=== PATIENT | female | born 1955 | race Caucasian/White ===

== ENCOUNTER → 2017-07-04 | Outpatient (CLI) | payer MEDICARE, MEDICAID ==
--- NOTE | 2017-07-04 17:00 | RADIOLOGY REPORT (SQ) ---
EXAM DESCRIPTION: MRI CERVICAL SPINE WITHOUT COMPLETED DATE/TIME: 07/04/2017 4:06 pm REASON FOR STUDY: M54.12 RADICULOPATHY, CERVICAL REGION M54.12 RADICULOPATHY, CERVICAL REGION COMPARISON: None. TECHNIQUE: Sagittal and Axial imaging includes T1, T2, STIR and gradient echo sequences. LIMITATIONS: None. FINDINGS: ALIGNMENT: Normal. VERTEBRAE: The odontoid is separate from the body of C2 and is well corticated. Otherwise intact. BONE MARROW: Normal. No marrow replacement or reactive changes. Incidental lesion in the body of C6 with increased signal on T1 and T2 weighted images, possibly a vertebral lipoma versus atypical heman gioma. DISCS: Normal. No significant abnormal signal or loss of height. HARDWARE: None in the spine. CORD AND BASE OF BRAIN: Normal in size and signal intensity. SOFT TISSUES: No soft tissue masses. C1-C2: No significant spinal stenosis. C2-C3: No significant spinal stenosis or exit foraminal stenosis. C3-C4: No significant spinal stenosis or exit foraminal stenosis. C4-C5: No significant spinal stenosis or exit foraminal stenosis. C5-C6: No significant spinal stenosis or exit foraminal stenosis. C6-C7: No significant spinal stenosis or exit foraminal stenosis. C7-T1: No significant spinal stenosis or exit foraminal stenosis. UPPER THORACIC: Incompletely imaged. No significant spinal stenosis or exit foraminal stenosis. OTHER: No other significant finding. IMPRESSION: 1. THE ODONTOID IS SEPARATE FROM THE BODY OF C2 AND IS WELL CORTICATED. 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 THIS IS A SURGERY TECH JAMEEL FINDING AND WAS ALSO PRESENT ON A PRIOR MRI OF THE BRAIN (04/06/2010). THERE IS NO COMPROMISE OF THE CERVICAL CANAL OR CORD IN NEUTRAL POSITIONING. MAY CONSIDER X-RAYS OF THE CERVICAL SPINE WITH FL EXION AND EXTENSION TO ASSESS FOR ANY EVIDENCE OF INSTABILITY. 2. NO OTHER SIGNIFICANT FINDING. NO SIGNIFICANT DISC DISEASE. NO STENOSIS OR IMPINGEMENT. 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 TECHNICAL DOCUMENTATION: JOB ID: [id number] [employer]- All Rights Reserved Reading location - IP/workstation name: [email or web address]
== END ==
LOC: RAD 16:40
PROVIDERS: ATTEND Internal Medicine
DX: M54.12 Radiculopathy, cervical region (principal)
CPT/HCPCS: 72141

== ENCOUNTER → 2017-08-13 | Outpatient (CLI) | payer MEDICARE, MEDICAID ==
--- NOTE | 2017-08-13 16:05 | RADIOLOGY REPORT (SQ) ---
EXAM DESCRIPTION: MRI RT UPPER JOINT WITHOUT COMPLETED DATE/TIME: 08/13/2017 3:44 pm REASON FOR STUDY: PAIN IN R SHOULDER M25.511 PAIN IN RIGHT SHOULDER COMPARISON: Radiographs from 2013. TECHNIQUE: Right shoulder images acquired and stored on PACS. Multiplanar imaging to include fat sen sitive sequences such as T1, water sensitive sequences such as FST2/STIR, cartilage sensitive sequenc es such as FSPD/gradient-echo sequences. LIMITATIONS: Up to moderate motion on many of the sequences despite attempted repeat scanning. No r ecent comparison radiographs are available. FINDINGS: BONE MARROW AND CORTEX: Patchy marrow edema is noted throughout the lateral humeral head. Suspect this is predominantly related to contusion. A significant displaced fracture is not suggest ed. See cuff related findings described below. JOINT OR BURSAL EFFUSION: Small joint effusion. This communicates with the subacromial subdeltoid bu rsa diffusely. GLENO-HUMERAL ARTICULATION: Superior migration humeral due to full-thickness cuff tear. Essentially complete loss of the subacromial space. ACROMION AND AC JOINT: No separation. Relatively mild degenerative overgrowth. ROTATOR CUFF AND INTERVAL: Full-thickness supraspinatus tear. Retraction is probably at least to the level of the glenohumeral joint. Prominent spurring and bone regularity underlying cuff insertion, likely chronic changes superimposed on the above-noted contusion. The infraspinatus portion of the c uff looks intact. Doubt significant subscapularis tear. Probable loss of muscle bulk/ atrophy in th e supraspinatus. LABRUM AND BICEPS LABRAL COMPLEX: Poor assessment of the superior labrum due to motion. Long head biceps tendon looks normally located within the biceps groove but otherwise is not well assessed. REMAINDER OF LABRUM AND IGHL : No gross displaced tear. PERIARTICULAR AND ADJACENT SOFT TISSUES: No masses or abnormal nodes. OTHER: No other significant finding. IMPRESSION: 1. Full-thickness supraspinatus cuff tear with retraction and atrophy. 2. Suspect combi nation of chronic bone changes related to cuff disease superimposed on lateral humeral head contusion edema. Or extensive or displaced fracture is not suggested. Limiting artifact, however. TECHNICAL DOCUMENTATION: JOB ID: [id number] [employer]- All Rights Reserved Reading location - IP/workstation name: [email or web address] [email or web address]
== END ==
LOC: RAD 13:26
PROVIDERS: ATTEND Internal Medicine
DX: M25.511 Pain in right shoulder (principal)

== ENCOUNTER → 2017-10-31 | Outpatient (CLI) | payer MEDICARE, MEDICAID ==
--- NOTE | 2017-10-31 17:43 | RADIOLOGY REPORT (SQ) ---
EXAM DESCRIPTION: CHEST PA/LATERAL COMPLETED DATE/TIME: 10/31/2017 5:34 pm REASON FOR STUDY: PRE-OP COMPARISON: None. EXAM PARAMETERS: NUMBER OF VIEWS: two views TECHNIQUE: Digital Frontal and Lateral radiographic views of the chest acquired. RADIATION DOSE: NA LIMITATIONS: none FINDINGS: LUNGS AND PLEURA: No opacities, masses or pneumothorax. No pleural effusion. MEDIASTINUM AND HILAR STRUCTURES: No masses or contour abnormalities. HEART AND VASCULAR STRUCTURES: Heart normal size. No evidence for failure. BONES: No acute findings. HARDWARE: None in the chest. OTHER: No other significant finding. IMPRESSION: NO SIGNIFICANT RADIOGRAPHIC FINDING IN THE CHEST. TECHNICAL DOCUMENTATION: JOB ID: [id number] [employer]- All Rights Reserved Reading location - IP/workstation name: [email or web address]
[2017-10-31 18:09] LABS: ABSOLUTE BASOPHILS # (AUTO) 0.1 10^3/uL (0.0-0.2); ABSOLUTE EOSINOPHILS # (AUTO) 0.1 10^3/uL (0.0-0.6); ABSOLUTE LYMPHOCYTES (AUTO) 2.6 10^3/uL (0.5-4.7); ABSOLUTE MONOCYTES (AUTO) 0.8 10^3/uL (0.1-1.4); ABSOLUTE NEUT (AUTO) 6.4 10^3/uL (1.7-8.2); BASOPHILS % (AUTO) 0.7 % (0-2); HEMATOCRIT 37.7 % (36.0-47.0); HEMOGLOBIN 12.7 g/dL (12.0-15.5); LYMPHOCYTES % (AUTO) 26.1 % (13-45); MEAN CORPUSCULAR HEMOGLOBIN 29.3 pg (27.0-33.4); MEAN CORPUSCULAR HGB CONC 33.7 g/dL (32.0-36.0); MEAN CORPUSCULAR VOLUME 87 fl (80-97); MONOCYTES % (AUTO) 8.1 % (3-13); PLATELET COUNT 357 10^3/uL (150-450); RED BLOOD COUNT 4.34 10^6/uL (3.72-5.28); RED CELL DISTRIBUTION WIDTH 14.1 % (11.5-14.0); SEGMENTED NEUTROPHILS % (AUTO) 64.1 % (42-78); TOTAL CELLS COUNTED % (AUTO) 100 %
[2017-10-31 18:10] LABS: APPEARANCE,URINE CLEAR; BILIRUBIN,URINE NEGATIVE (NEGATIVE); COLOR,URINE STRAW; GLUCOSE, URINE NEGATIVE (NEGATIVE); KETONES,URINE NEGATIVE (NEGATIVE); LEUKOCYTE ESTERASE,URINE NEGATIVE (NEGATIVE); NITRITE,URINE NEGATIVE (NEGATIVE); PROTEIN,URINE NEGATIVE (NEGATIVE); URINE SPECIFIC GRAVITY 1.004; UROBILINOGEN,URINE NEGATIVE mg/dL (<2.0)
[2017-10-31 18:29] LABS: ANION GAP 12 (5-19); BLOOD UREA NITROGEN 13 mg/dL (7-20); CALCIUM 9.5 mg/dL (8.4-10.2); CARBON DIOXIDE 26 mmol/L (22-30); CHLORIDE 104 mmol/L (98-107); GLUCOSE 100 mg/dL (75-110); POTASSIUM 4.4 mmol/L (3.6-5.0); SODIUM 142.4 mmol/L (137-145)
--- NOTE | 2017-11-01 07:52 | EKG REPORT ---
SEVERITY:- NORMAL ECG - SINUS RHYTHM : Confirmed by: Josefina Muse MD 01-Nov-2017 07:51:17
== END ==
LOC: OD 16:36
PROVIDERS: ATTEND Orthopaedic Surgery
DX: Z01.810 Encounter for preprocedural cardiovascular examination (principal); Z01.812 Encounter for preprocedural laboratory examination; Z01.818 Encounter for other preprocedural examination; Z01.89 Encounter for other specified special examinations
CPT/HCPCS: 36415; 71046; 80048; 81001; 85025; 93005; 93010

== ENCOUNTER 2017-11-02 11:02 | Day surgery (SDC) | payer MEDICARE, MEDICAID ==
[2017-11-02] MEDS ORDERED: BUPIVACAINE HCL 0.5 % INJ/PF 30 ML SDV ONE (11:44)
[2017-11-02] MEDS ORDERED: EPINEPHRINE INJ/PF 1 MG/1 ML AMPULE ONE ×2 (11:44→14:50)
[2017-11-02] MEDS ORDERED: CEFAZOLIN 2 GM/D5W RTU 2 GM/50 ML RTUPB IV PRN (12:05)
[2017-11-02] MEDS ORDERED: KETOROLAC TROMETHAMINE 60 MG/2 ML SDV ONE (12:06)
[2017-11-02] MEDS ORDERED: ACETAMINOPHEN 1,000 MG/100 ML RTUPB IV ONE (12:06)
[2017-11-02] MEDS ORDERED: FENTANYL CITRATE INJ/PF 250 MCG/5 ML AMPULE ONE (12:06)
[2017-11-02] MEDS ORDERED: PROPOFOL INJ 200 MG/20 ML VIAL IV ONE (12:06)
[2017-11-02] MEDS ORDERED: MIDAZOLAM 2 MG/2 ML INJ ONE (12:06)
[2017-11-02] MEDS ORDERED: DEXAMETHASONE SOD PHOSPHATE INJ 4 MG/1 ML VIAL ONE (12:06)
[2017-11-02] MEDS ORDERED: HYDROMORPHONE HCL INJ/PF 2 MG/ML AMPULE ONE (12:07)
[2017-11-02] MEDS ORDERED: LIDOCAINE 2% INJ-PF (20 MG/ML) 10 ML AMPUL ONE (12:13)
[2017-11-02] MEDS ORDERED: DIPHENHYDRAMINE HCL 50 MG/ML VIAL IV PRN ×2 (14:04→18:13)
[2017-11-02] MEDS ORDERED: PROMETHAZINE HCL INJ 25 MG/1 ML VIAL IV PRN ×2 (14:04→18:13)
[2017-11-02] MEDS ORDERED: MEPERIDINE HCL/PF INJ 25 MG/1 ML DISP.SYRIN IV PRN ×2 (14:04→18:13)
[2017-11-02] MEDS ORDERED: MORPHINE SULFATE 10 MG/ML INJ IV PRN ×2 (14:04→18:13)
[2017-11-02] MEDS ORDERED: FENTANYL CITRATE INJ/PF 100 MCG/2 ML AMPUL IV PRN ×6 (14:04→18:13)
[2017-11-02] MEDS ORDERED: PROMETHAZINE HCL INJ 25 MG/1 ML VIAL ONE (17:18)
[2017-11-02] MEDS ORDERED: FENTANYL CITRATE INJ/PF 100 MCG/2 ML AMPUL ONE (17:18)
--- NOTE | 2017-11-02 17:48 | Discharge Summary ---
Discharge Summary (SDC) - Discharge Final Diagnosis: Right shoulder arthroscopic superior capsular reconstruction and biceps tenotomy Date of Surgery: 11/02/17 Discharge Date: 11/02/17 Condition: Good Treatment or Instructions: Patient is instructed to follow up in 10-14 days. Patient instructed to remove dressing in 4 days then can shower and apply Band- Aids as needed. Patient to wear sling for comfort but okay to remove for shower and pendulum exercises. Pendulum exercises are instructed to be done 3 times a day ideally with breakfast, lunch, dinners and showers. Patient instructed to call if there is any signs of redness or drainage fevers or chills. Prescriptions: Oxycodone HCl/Acetaminophen [Percocet 5-325 mg Tablet] 1 - 2 tab PO ASDIR PRN # 60 tablet PRN Reason: Referrals: TANNER BOSCH MD [Primary Care Provider] - Discharge Diet: As Tolerated Respiratory Treatments at Home: Deep Breathing/Coughing Discharge Activity: No Driving, No Lifting/Push/Pulling Home Care Assistance: None Needed Report the Following to Your Physician Immediately: Shortness of Breath, Vomiting, Increase in Pain, Fever over 101 Degrees, Unusual Bleeding, Redness, Swelling, Warmth, Increased Soreness, Drainage-Yellow, Drainage-Lott, Drainage- Green, Drainage-Foul Smelling
[2017-11-02] MEDS ORDERED: OXYCODONE-ACETAMINOPHEN 5-325 MG TABLET PO PRN (18:10)
[2017-11-02 20:06] VITALS: BP 158/79
--- NOTE | 2017-11-19 17:20 | Operative Report ---
Operative Report DATE OF SURGERY: 11/02/17 PREOPERATIVE DIAGNOSIS: Right shoulder irreparable rotator cuff tear POSTOPERATIVE DIAGNOSIS: Same OPERATION: Right shoulder arthroscopic superior capsular reconstruction SURGEON: SUSANNA RICHARDS ANESTHESIA: GA TISSUE REMOVED OR ALTERED: None COMPLICATIONS: None ESTIMATED BLOOD LOSS: Less than 20 mL INTRAOPERATIVE FINDINGS: As above PROCEDURE: After receiving preoperative antibiotics patient was brought to the operating room where she was induced and intubated in supine position. Right shoulder was prepped and draped in a normal sterile surgical fashion after she was placed in a beachchair position. A timeout was done identifying the right shoulder is a correct site. 11 blade was used to establish the posterior portal and the scope was introduced. The capsule was distended with sterile saline solution and and under direct visualization the anterior portal was established. Diagnostic scope was done and shown that the patient had a retracted rotator cuff tear to the glenoid. The glenohumeral joint was still overall intact with some mild arthritic changes. Biceps was attached but subluxing anteriorly. I proceeded to be to do a biceps tenotomy using arthroscopic scissors. I did a limited debridement and then redirected the scope to the subacromial space. There is some bursal tissue that was resected after I introduced a 4.0 shaver. This was induced to a lateral portal that was established 11 blade. Through a percutaneous incision adjacent to the acromion I was able to place my 2 anchors at the articular margin of the humeral head and through an anterior portal and no advisor portal I was able to establish and placed my suture tacks in the glenoid. In the back table after measuring the distance of the anchors I was able to then cut my dermal graft to the appropriate size. I used a scorpion fast pass suture to pass the limbs of the suture through the graft. Make sure had proper suture management and location. Through the lateral portal I was able then to shuttle the graft and since down the graft on the glenoid using the Arthrex technique. We will say the proper suture management I then was able to do arthroscopic knots to secure the remaining limbs on the glenoid. The fiber tape was passed through the swivel locks and then crisscrossed and secured with lateral swivel locks humeral head completing the fixation of the dermal graft for the superior capsular reconstruction. Remaining limbs were cut with arthroscopic scissors and cutter. At this point I proceeded to close my incision using 3-0 Monocryl in a interrupted buried fashion. Steri-Strips and Dermabond was applied to the incisions and covered with 4 x 4 dressing ABD pad and Medipore tape. Drapes were removed and the patient was placed in a sling. Patient was placed in a supine position where she was extubated and sent to PACU in stable condition
== END 2017-11-02 19:45 | disposition home or self-care (01) ==
LOC: OROUT 11:02
PROVIDERS: ATTEND Orthopaedic Surgery
PROC: 0RW Upper Joints, Revision (ICD-10-PCS; principal; 2017-11-02 13:00)
DX: M75.121 Complete rotator cuff tear or rupture of right shoulder, not specified as traumatic (principal)
CPT/HCPCS: 29999; Q4125; C1713; J2250; J3490 ×2; J1100; J0171; J1885; J3010 ×2; A9270; J1170; J2550; J2704; J0690; J0131; 1630

== ENCOUNTER → 2018-04-13 | Outpatient (CLI) | payer MEDICARE, OTHER ==
--- NOTE | 2018-04-13 19:26 | RADIOLOGY REPORT (SQ) ---
EXAM DESCRIPTION: MRI LUMBAR SPINE WITHOUT COMPLETED DATE/TIME: 04/13/2018 12:14 pm REASON FOR STUDY: LOW BACK PAIN M54.5 LOW BACK PAIN COMPARISON: 2006 TECHNIQUE: Sagittal and Axial imaging includes T1, T2, STIR and gradient echo sequences. Coronal T2/ HASTE imaging. LIMITATIONS: None. FINDINGS: VISUALIZED UPPER ABDOMEN: Limited evaluation. No acute or suspicious findings suggested. SEGMENTATION: No transitional anatomy. The lowest well-developed disc space is labeled L5-S1. ALIGNMENT: Anatomic. VERTEBRAE: Intact. BONE MARROW: Multilevel reactive endplate changes most marked L4-5. DISC SIGNAL: Loss of height and T2 signal most marked L4-5. POSTERIOR ELEMENTS: Generally intact. No pars defect evident. HARDWARE: None in the spine. CORD AND CONUS: Normal in size and signal intensity. Conus at the appropriate level. SOFT TISSUES: No aortic aneurysm seen. No bulky retroperitoneal adenopathy or mass. No paraspinal mas s or fluid. L1-L2: No significant spinal stenosis or exit foraminal stenosis. L2-L3: Generalized disc bulge. Facet and ligamentous hypertrophy with lateral recess narrowing left greater than right. Mild central canal stenosis. L3-L4: Generalized disc bulge. Facet ligamentous hypertrophy with lateral recess narrowing. Mild na rrowing of the exit foramina and central canal stenosis. L4-L5: Degenerative disc with broad-based bulge and asymmetric left lateral protrusion. Marked facet and ligamentous hypertrophy with marked lateral recess narrowing. Moderate narrowing of the exit fo ramina left greater than right. Marked central canal stenosis. L5-S1: Generalized degenerative disc with broad-based bulge. Moderate narrowing of the exit foramina . LOWER THORACIC: Incompletely imaged. No stenosis seen. SACRUM: Visualized upper sacrum intact. OTHER: No other significant findings. IMPRESSION: Multilevel spondylosis. Most severe findings L4-5 where there is marked central canal s tenosis and moderate narrowing of the exit foramina. TECHNICAL DOCUMENTATION: JOB ID: [id number] [employer]- All Rights Reserved Reading location - IP/workstation name: [email or web address]
== END ==
LOC: RAD 11:29
PROVIDERS: ATTEND Physician Assistant
DX: M54.5 Low back pain (principal)
CPT/HCPCS: 72148

== ENCOUNTER → 2018-05-02 | Outpatient (CLI) | payer MEDICARE, OTHER ==
--- NOTE | 2018-05-02 11:35 | RADIOLOGY REPORT (SQ) ---
EXAM DESCRIPTION: CT ABD/PELVIS WITH IV ORAL COMPLETED DATE/TIME: 05/02/2018 9:28 am REASON FOR STUDY: NTRAL HERNIA W/O OBSTRUCTION OR GANGRENE K43.9 VENTRAL HERNIA WITHOUT OBSTRUCTION OR GANGRENE COMPARISON: 02/18/2013 TECHNIQUE: CT scan of the abdomen and pelvis performed with intravenous and oral contrast using milton hilda scanning technique with dynamic intravenous contrast injection. Images reviewed with lung, soft t issue, and bone windows. Reconstructed coronal and sagittal MPR images reviewed. Delayed images for e valuation of the urinary system also acquired. All images stored on PACS. All CT scanners at this facility use dose modulation, iterative reconstruction, and/or weight based d osing when appropriate to reduce radiation dose to as low as reasonably achievable (ALARA). [facility]: Dose Right [facility]: CareDose [facility]: Dose Right [facility]: Teradose 4D [facility]: Soundstache CONTRAST TYPE AND DOSE: contrast/concentration: Isovue 350.00 mg/ml; Total Contrast Delivered: 100.0 ml; Total Saline Delivered: 72.0 ml RENAL FUNCTION: GFR > 60. RADIATION DOSE: CT Rad equipment meets quality standard of care and radiation dose reduction techniq ues were employed. CTDIvol: 23.1 - 23.6 mGy. DLP: 2336 mGy-cm. . LIMITATIONS: None. FINDINGS: LOWER CHEST: No significant findings. No nodules or infiltrates. LIVER: Normal size. No masses. No dilated ducts. SPLEEN: Normal size. No focal lesions. PANCREAS: No masses. No significant calcifications. No adjacent inflammation or peripancreatic fluid collections. Pancreatic duct not dilated. GALLBLADDER: No identified stones by CT criteria. No inflammatory changes to suggest cholecystitis. ADRENAL GLANDS: No significant masses or asymmetry. RIGHT KIDNEY AND URETER: No solid masses. No significant calcifications. No hydronephrosis or hyd roureter. LEFT KIDNEY AND URETER: No solid masses. No significant calcifications. No hydronephrosis or hydr oureter. AORTA AND VESSELS: No aneurysm. No dissection. Renal arteries, SMA, celiac without stenosis. RETROPERITONEUM: No retroperitoneal adenopathy, hemorrhage or masses. BOWEL AND PERITONEAL CAVITY: Prior gastric bypass. No obstruction. No visualized masses. No free flu id. No inflammatory changes or thickening of bowel wall. APPENDIX: Normal. PELVIS: No significant masses. Normal bladder. No free fluid. ABDOMINAL WALL: Large anterior abdominal wall hernia with defect about 20 cm in the craniocaudal plan e and 18 cm in the transverse plane. BONES: Nothing acute. OTHER: No other significant finding. IMPRESSION: Large anterior abdominal wall hernia without evidence of bowel obstruction. TECHNICAL DOCUMENTATION: JOB ID: [id number] Quality ID # [id number]: Final reports with documentation of one or more dose reduction techniques (e.g., Au tomated exposure control, adjustment of the mA and/or kV according to patient size, use of iterative reconstruction technique) 2010 [employer]- All Rights Reserved Reading location - IP/workstation name: [email or web address]
== END ==
LOC: RAD 08:51
PROVIDERS: ATTEND Surgery
DX: K43.9 Ventral hernia without obstruction or gangrene (principal)
CPT/HCPCS: 74177; 82565

== ENCOUNTER 2018-05-25 11:18 | Emergency (ER) | payer MEDICARE, OTHER ==
--- NOTE | 2018-05-25 12:08 | ER Document Report ---
ED General - General Mode of Arrival: Ambulatory Information source: Patient TRAVEL OUTSIDE OF THE [place] IN LAST 30 DAYS: No - HPI Onset: Yesterday Onset/Duration: Sudden Quality of pain: Sharp, Stabbing, Throbbing Severity: Moderate Exacerbated by: Denies Relieved by: Denies Similar symptoms previously: No Recently seen / treated by doctor: Yes <SAYRA LINTON - Last Filed: 05/25/18 16:04> <DOC KAUFMAN - Last Filed: 05/25/18 17:46> - General Chief Complaint: Blurred Vision Stated Complaint: VISION ISSUE Time Seen by Provider: 05/25/18 11:42 Notes: 62-year-old female presents the emergency department with complaints of double vision that started yesterday 30 minutes after receiving Toradol for right flank pain. Patient states that she has been having right flank pain for the last day. She went to urgent care and was diagnosed with muscle strain. She was given the Toradol and a prescription for Flexeril. Patient states that 30 minutes after receiving the Toradol the double vision started and has been persistent. It's a horizontal double vision. It does not change with position of the head or looking near/far. No eye pain. Patient states that she is also been having the right flank pain. She denies any alleviation with the Toradol or the Flexeril. She denies any exacerbating factors. She describes it as a sharp and stabbing sensation in the right flank without any radiation. Patient states that she has had gastric bypass. She states that she still has her gallbladder and appendix. She denies any nausea, vomiting, diarrhea, constipation, dysuria, hematuria. Patient denies any trauma or injury. She denies any speech changes, numbness, tingling, weakness. balance problems. (SAYRA LINTON) - Related Data Allergies/Adverse Reactions: adhesive tape Allergy (Verified 11/01/17 16:06) Past Medical History - General Information source: Patient - Social History Smoking Status: Never Smoker Chew tobacco use (# tins/day): No Frequency of alcohol use: None Drug Abuse: None Family History: Reviewed & Not Pertinent Patient has suicidal ideation: No Patient has homicidal ideation: No - Past Medical History Cardiac Medical History: Denies: Hx Coronary Artery Disease, Hx Heart Attack, Hx Hypertension Pulmonary Medical History: Denies: Hx Asthma, Hx Bronchitis, Hx COPD, Hx Pneumonia Neurological Medical History: Denies: Hx Cerebrovascular Accident, Hx Seizures Endocrine Medical History: Reports: Hx Diabetes Mellitus Type 2 - "boderline" Renal/ Medical History: Denies: Hx Peritoneal Dialysis GI Medical History: Reports: Hx Gastroesophageal Reflux Disease, Hx Hiatal Herni a. Denies: Hx Hepatitis, Hx Ulcer Musculoskeletal Medical History: Reports Hx Arthritis Infectious Medical History: Denies: Hx Hepatitis Past Surgical History: Reports: Hx Section - x2, Hx Gastric Bypass Surgery, Hx Tonsillectomy - and Addenoids. Denies: Hx Hysterectomy, Hx Mastectomy, Hx Open Heart Surgery, Hx Pacemaker - Immunizations Immunizations up to date: No Hx Diphtheria, Pertussis, Tetanus Vaccination: Yes <SAYRA LINTON - Last Filed: 05/25/18 16:04> Review of Systems - Review of Systems Constitutional: No symptoms reported EENT: Double vision Cardiovascular: No symptoms reported Respiratory: No symptoms reported Gastrointestinal: Abdominal pain Genitourinary: No symptoms reported Female Genitourinary: No symptoms reported Musculoskeletal: No symptoms reported Skin: No symptoms reported Hematologic/Lymphatic: No symptoms reported Neurological/Psychological: No symptoms reported -: Yes All other systems reviewed and negative <SAYRA LINTON - Last Filed: 05/25/18 16:04> Physical Exam <SAYRA LINTON - Last Filed: 05/25/18 16:04> - Vital signs Vitals: Temp Pulse Resp BP Pulse Ox 97.8 F 65 18 134/66 H 98 05/25/18 11:31 05/25/18 11:31 05/25/18 11:31 05/25/18 11:31 05/25/18 11:31 - Notes Notes: PHYSICAL EXAMINATION: GENERAL: Well-appearing, well-nourished and in no acute distress. HEAD: Atraumatic, normocephalic. EYES: Pupils equal round and reactive to light, extraocular movements intact, conjunctiva are normal. ENT: Nares patent, oropharynx clear without exudates. Moist mucous membranes. NECK: Normal range of motion, supple without lymphadenopathy LUNGS: Breath sounds clear to auscultation bilaterally and equal. No wheezes rales or rhonchi. HEART: Regular rate and rhythm without murmurs ABDOMEN: Soft, nontender, nondistended abdomen. No guarding, no rebound. Right flank tenderness to palpation. Female : deferred Musculoskeletal: Normal range of motion, no pitting or edema. No cyanosis. NEUROLOGICAL: Cranial nerves grossly intact. Normal speech, normal gait. Normal sensory, motor exams PSYCH: Normal mood, normal affect. SKIN: Warm, Dry, normal turgor, no rashes or lesions noted. (SAYRA LINTON) Course - Laboratory Result Diagrams: 05/25/18 12:55 05/25/18 12:55 <SAYRA LINTON - Last Filed: 05/25/18 16:04> - Laboratory Result Diagrams: 05/25/18 12:55 05/25/18 12:55 <DOC KAUFMAN - Last Filed: 05/25/18 17:46> - Re-evaluation Re-evalutation: 05/25/18 15:59 Visual acuity done and charted. Labs obtained. They are within normal limits. Head CT was done and does not show an acute process. CT abdomen pelvis was done to evaluate for the right flank pain and does not show an acute process. MRI ordered and pending. Patient signed out to Dr. Kaufman. 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 Her diplopia, is most likely secondary to this, and needs to be referred to ophthalmology, for possible prism testing, this was discussed with the patient and she was agreeable, referral to Dr. Pemberton was given and patient was discharged to home. (DOC KAUFMAN) - Vital Signs Vital signs: Temp Pulse Resp BP Pulse Ox 97.6 F 65 16 119/73 98 05/25/18 12:56 05/25/18 11:31 05/25/18 13:01 05/25/18 13:00 05/25/18 15:00 - Laboratory Laboratory results interpreted by me: 05/25/18 05/25/1819 11:45 12:55 12:55 RDW 14.7 H BUN 21 H Lipase 542.9 H Ur Leukocyte Esterase TRACE H Discharge <SAYRA LINTON A - Last Filed: 05/25/18 16:04> <DOC KAUFMAN C - Last Filed: 05/25/18 17:46> - Discharge Clinical Impression: Diplopia Condition: Stable Disposition: HOME, SELF-CARE Additional Instructions: Please follow-up with the supervisor reinforced steel placing, for additional testing, if you have worsening symptoms, or other symptoms that concern you, do not hesitate to return to the emergency department for further evaluation and management. Referrals: GANESH COOK MD [ACTIVE STAFF] - Follow up tomorrow (call for appointment )
[2018-05-25 12:20] LABS: APPEARANCE,URINE CLEAR; BILIRUBIN,URINE NEGATIVE (NEGATIVE); COLOR,URINE YELLOW; GLUCOSE, URINE NEGATIVE (NEGATIVE); KETONES,URINE NEGATIVE (NEGATIVE); LEUKOCYTE ESTERASE,URINE TRACE (NEGATIVE); NITRITE,URINE NEGATIVE (NEGATIVE); PROTEIN,URINE NEGATIVE (NEGATIVE); UROBILINOGEN,URINE NEGATIVE mg/dL (<2.0)
[2018-05-25 12:35] LABS: URINE AMPHETAMINES SCREEN UNCONFIRMED POSITIVE; URINE BARBITURATES SCREEN NEGATIVE; URINE BENZODIAZEPINES SCREEN NEGATIVE; URINE COCAINE SCREEN NEGATIVE; URINE MARIJUANA (THC) SCREEN NEGATIVE; URINE METHADONE SCREEN NEGATIVE; URINE PHENCYCLIDINE SCREEN NEGATIVE
[2018-05-25 13:23] LABS: ABSOLUTE BASOPHILS # (AUTO) 0.1 10^3/uL (0.0-0.2); ABSOLUTE EOSINOPHILS # (AUTO) 0.1 10^3/uL (0.0-0.6); ABSOLUTE LYMPHOCYTES (AUTO) 1.5 10^3/uL (0.5-4.7); ABSOLUTE MONOCYTES (AUTO) 0.5 10^3/uL (0.1-1.4); ABSOLUTE NEUT (AUTO) 3.5 10^3/uL (1.7-8.2); BASOPHILS % (AUTO) 0.9 % (0-2); EOSINOPHILS % (AUTO) 2.4 % (0-6); HEMATOCRIT 36.5 % (36.0-47.0); HEMOGLOBIN 12.3 g/dL (12.0-15.5); LYMPHOCYTES % (AUTO) 25.9 % (13-45); MEAN CORPUSCULAR HEMOGLOBIN 29.3 pg (27.0-33.4); MEAN CORPUSCULAR HGB CONC 33.6 g/dL (32.0-36.0); MEAN CORPUSCULAR VOLUME 87 fl (80-97); MONOCYTES % (AUTO) 9.4 % (3-13); PLATELET COUNT 284 10^3/uL (150-450); RED BLOOD COUNT 4.19 10^6/uL (3.72-5.28); RED CELL DISTRIBUTION WIDTH 14.7 % (11.5-14.0); SEGMENTED NEUTROPHILS % (AUTO) 61.4 % (42-78); TOTAL CELLS COUNTED % (AUTO) 100 %; WHITE BLOOD COUNT 5.7 10^3/uL (4.0-10.5)
[2018-05-25 13:30] LABS: ALANINE AMINOTRANSFERASE 29 U/L (9-52); ALKALINE PHOSPHATASE 91 U/L (38-126); ANION GAP 5 (5-19); ASPARTATE AMINO TRANSFERASE 25 U/L (14-36); BILIRUBIN,DIRECT 0.3 mg/dL (0.0-0.4); BILIRUBIN,TOTAL 0.6 mg/dL (0.2-1.3); BLOOD UREA NITROGEN 21 mg/dL (7-20); CALCIUM 9.1 mg/dL (8.4-10.2); CARBON DIOXIDE 30 mmol/L (22-30); CHLORIDE 103 mmol/L (98-107); GLUCOSE 93 mg/dL (75-110); LIPASE 542.9 U/L (23-300); POTASSIUM 4.8 mmol/L (3.6-5.0); SODIUM 137.5 mmol/L (137-145); TOTAL PROTEIN 6.8 g/dL (6.3-8.2)
[2018-05-25 13:45] LABS: FREE T4 (FREE THYROXINE) 0.91 ng/dL (0.78-2.19)
[2018-05-25 13:59] LABS: THYROID STIMULATING HORMONE 0.58 uIU/mL (0.47-4.68)
--- NOTE | 2018-05-25 14:20 | RADIOLOGY REPORT (SQ) ---
EXAM DESCRIPTION: CT HEAD WITHOUT COMPLETED DATE/TIME: 05/25/2018 2:06 pm REASON FOR STUDY: double vision COMPARISON: None. TECHNIQUE: Axial images acquired through the brain without intravenous contrast. Images reviewed wi th bone, brain and subdural windows. Images stored on PACS. All CT scanners at this facility use dose modulation, iterative reconstruction, and/or weight based d osing when appropriate to reduce radiation dose to as low as reasonably achievable (ALARA). [facility]: Dose Right [facility]: CareDose [facility]: Dose Right [facility]: Teradose 4D [facility]: Jigsaw Meeting RADIATION DOSE: CT Rad equipment meets quality standard of care and radiation dose reduction techniq ues were employed. CTDIvol: 53.2 mGy. DLP: 1044 mGy-cm. mGy. LIMITATIONS: None. FINDINGS: VENTRICLES: Normal size and contour. CEREBRUM: No masses. No hemorrhage. No midline shift. No evidence for acute infarction. Normal gra y/white matter differentiation. No areas of low density in the white matter. CEREBELLUM: No masses. No hemorrhage. No alteration of density. No evidence for acute infarction. EXTRAAXIAL SPACES: No fluid collections. No masses. ORBITS AND GLOBE: No intra- or extraconal masses. Normal contour of globe without masses. CALVARIUM: No fracture. PARANASAL SINUSES: No fluid or mucosal thickening. SOFT TISSUES: No mass or hematoma. OTHER: No other significant finding. IMPRESSION: No acute intracranial findings. EVIDENCE OF ACUTE STROKE: NO. COMMENT: Quality ID # [id number]: Final reports with documentation of one or more dose reduction techniques (e.g., Automated exposure control, adjustment of the mA and/or kV according to patient size, use of iterative reconstruction technique) TECHNICAL DOCUMENTATION: JOB ID: [id number] [place]-72 2010 [employer]- All Rights Reserved Reading location - IP/workstation name: [email or web address]
--- NOTE | 2018-05-25 14:31 | RADIOLOGY REPORT (SQ) ---
EXAM DESCRIPTION: CT ABD/PELVIS WITH IV ONLY COMPLETED DATE/TIME: 05/25/2018 2:06 pm REASON FOR STUDY: right flank pain COMPARISON: 05/02/2018 TECHNIQUE: CT scan of the abdomen and pelvis performed using helical scanning technique with dynamic intravenous contrast injection. No oral contrast. Images reviewed with lung, soft tissue, and bone w indows. Reconstructed coronal and sagittal MPR images reviewed. Delayed images for evaluation of the urinary system also acquired. All images stored on PACS. All CT scanners at this facility use dose modulation, iterative reconstruction, and/or weight based d osing when appropriate to reduce radiation dose to as low as reasonably achievable (ALARA). [facility]: Dose Right [facility]: CareDose [facility]: Dose Right [facility]: Teradose 4D [facility]: Wunderdata CONTRAST TYPE AND DOSE: contrast/concentration: Isovue 350.00 mg/ml; Total Contrast Delivered: 100.0 ml; Total Saline Delivered: 72.0 ml RENAL FUNCTION: GFR > 60. RADIATION DOSE: CT Rad equipment meets quality standard of care and radiation dose reduction techniq ues were employed. CTDIvol: 19.3 - 20.2 mGy. DLP: 2102 mGy-cm.. LIMITATIONS: None. FINDINGS: LOWER CHEST: No significant findings. LIVER: Normal size. No enhancing masses. No dilated ducts. SPLEEN: Normal size. No focal lesions. PANCREAS: No masses identified. No significant calcifications. No adjacent inflammation or peripancre atic fluid collections. Pancreatic duct not dilated. GALLBLADDER: No calcified stones. No inflammatory changes to suggest cholecystitis. ADRENAL GLANDS: No significant masses. RIGHT KIDNEY AND URETER: No cysts identified. No solid masses identified. No calcified stones. No hyd ronephrosis or hydroureter. LEFT KIDNEY AND URETER: No cysts identified. No solid masses identified. No calcified stones. No hydr onephrosis or hydroureter. AORTA AND VESSELS: No aneurysm. No dissection. Renal arteries, SMA, celiac without significant stenos is. RETROPERITONEUM: No bulky retroperitoneal adenopathy. BOWEL AND PERITONEAL CAVITY: No obstruction or inflammatory changes. No free fluid. APPENDIX: Normal. PELVIS: No mass. No free fluid. Unremarkable bladder. ABDOMINAL WALL: No masses. Similar anterior hernia-dehiscence. BONES: No acute findings. Similar multilevel degenerative changes in the spine. OTHER: No other significant finding. IMPRESSION: NO ACUTE FINDINGS IN THE ABDOMEN OR PELVIS ON CT SCAN WITH IV CONTRAST. TECHNICAL DOCUMENTATION: JOB ID: [id number] [place]-72 Quality ID # [id number]: Final reports with documentation of one or more dose reduction techniques (e.g., Au tomated exposure control, adjustment of the mA and/or kV according to patient size, use of iterative reconstruction technique) 2010 [employer]- All Rights Reserved Reading location - IP/workstation name: [email or web address]
[2018-05-25 15:15] VITALS: BP 119/73
--- NOTE | 2018-05-25 16:53 | RADIOLOGY REPORT (SQ) ---
EXAM DESCRIPTION: MRI HEAD WITHOUT COMPLETED DATE/TIME: 05/25/2018 4:27 pm REASON FOR STUDY: double vision COMPARISON: None. TECHNIQUE: Multiplanar imaging includes non-contrasted T1, T2, FLAIR, and diffusion with ADC map seq uences. Images stored on PACS. LIMITATIONS: None. FINDINGS: ANATOMY: No anomalies. Normal vascular flow voids. Pituitary fossa normal. CSF SPACES: Normal in size and contour. No hemorrhage. CEREBRUM: Sulci and gyri normal in size and contour. Age-appropriate white matter signal on FLAIR im aging. No evidence of hemorrhage, mass, or extraaxial fluid collection. POSTERIOR FOSSA: No signal alteration. No hemorrhage. No edema, masses or mass effect. Internal krista tory canals, cerebello-pontine angles, mastoids normal. DIFFUSION IMAGING: Negative for acute or sub-acute infarction. ORBITS: No masses. Globes normal. PARANASAL SINUSES: No fluid levels. Mucosa normal. OTHER: No other significant finding. IMPRESSION: Negative for acute or sub-acute infarction. Age-appropriate exam. EVIDENCE OF ACUTE STROKE: NO. TECHNICAL DOCUMENTATION: JOB ID: [id number] [place]-72 2010 [employer]- All Rights Reserved Reading location - IP/workstation name: [email or web address]
== END 2018-05-25 18:07 | disposition home or self-care (01) ==
LOC: ER 11:18
DX: H53.2 Diplopia (principal); R10.9 Unspecified abdominal pain; H53.8 Other visual disturbances
CPT/HCPCS: 36415; 70450; 70551; 74177; 80053; 80307; 81001; 83690; 84439; 84443; 85025; 99284

== ENCOUNTER 2018-05-26 18:38 | Emergency (ER) | payer MEDICARE, OTHER ==
--- NOTE | 2018-05-26 18:45 | ER Document Report ---
ED Medical Screen (RME) - General Chief Complaint: Numbness Stated Complaint: RIGHT SIDE BODY TINGLING,HANDS NUMB Time Seen by Provider: 05/26/18 18:44 Mode of Arrival: Ambulatory Information source: Patient TRAVEL OUTSIDE OF THE [place] IN LAST 30 DAYS: No - HPI Patient complains to provider of: R side numbness Onset: This afternoon - pt started with R-sided numbness earlier this afternoon - Related Data Allergies/Adverse Reactions: adhesive tape Allergy (Verified 11/01/17 16:06) Past Medical History - Past Medical History Cardiac Medical History: Denies: Hx Coronary Artery Disease, Hx Heart Attack, Hx Hypertension Pulmonary Medical History: Denies: Hx Asthma, Hx Bronchitis, Hx COPD, Hx Pneumonia Neurological Medical History: Denies: Hx Cerebrovascular Accident, Hx Seizures Endocrine Medical History: Reports: Hx Diabetes Mellitus Type 2 - "boderline" Renal/ Medical History: Denies: Hx Peritoneal Dialysis GI Medical History: Reports: Hx Gastroesophageal Reflux Disease, Hx Hiatal Hernia. Denies: Hx Hepatitis, Hx Ulcer Musculoskeltal Medical History: Reports Hx Arthritis Infectious Medical History: Denies: Hx Hepatitis Past Surgical History: Reports: Hx Section - x2, Hx Gastric Bypass Surg madhu, Hx Tonsillectomy - and Addenoids. Denies: Hx Hysterectomy, Hx Mastectomy, Hx Open Heart Surgery, Hx Pacemaker - Immunizations Immunizations up to date: No Hx Diphtheria, Pertussis, Tetanus Vaccination: Yes History of Influenza Vaccine for 02/2017 - 07/2017 Season: Yes Influenza Administration Date for 02/2017 - 07/2017 Season: 02/04/17 Doctor's Discharge - Discharge Referrals: TANNER BOSCH MD [Primary Care Provider] - Follow up as needed
--- NOTE | 2018-05-26 19:10 | RADIOLOGY REPORT (SQ) ---
EXAM DESCRIPTION: CT HEAD WITHOUT COMPLETED DATE/TIME: 05/26/2018 6:57 pm REASON FOR STUDY: R-side numbness COMPARISON: 05/25/2017 and earlier TECHNIQUE: Axial images acquired through the brain without intravenous contrast. Images reviewed wi th bone, brain and subdural windows. Additional sagittal and coronal reconstructions were generated. Images stored on PACS. All CT scanners at this facility use dose modulation, iterative reconstruction, and/or weight based d osing when appropriate to reduce radiation dose to as low as reasonably achievable (ALARA). [facility]: Dose Right [facility]: CareDose [facility]: Dose Right [facility]: Teradose 4D [facility]: [id number] RADIATION DOSE: CT Rad equipment meets quality standard of care and radiation dose reduction techniq ues were employed. CTDIvol: 53.2 mGy. DLP: 991 mGy-cm. mGy. LIMITATIONS: None. FINDINGS: VENTRICLES: Normal size and contour. CEREBRUM: No masses. No hemorrhage. No midline shift. No evidence for acute infarction. Normal gra y/white matter differentiation. No areas of low density in the white matter. CEREBELLUM: No masses. No hemorrhage. No alteration of density. No evidence for acute infarction. EXTRAAXIAL SPACES: No fluid collections. No masses. ORBITS AND GLOBE: No intra- or extraconal masses. Normal contour of globe without masses. CALVARIUM: No fracture. PARANASAL SINUSES: No fluid or mucosal thickening. SOFT TISSUES: No mass or hematoma. OTHER: No other significant finding. IMPRESSION: NO ACUTE INTRACRANIAL IMAGING FINDINGS. EVIDENCE OF ACUTE STROKE: NO. COMMENT: Quality ID # 436: Final reports with documentation of one or more dose reduction techniques (e.g., Automated exposure control, adjustment of the mA and/or kV according to patient size, use of iterative reconstruction technique) TECHNICAL DOCUMENTATION: JOB ID: [id number] [employer]- All Rights Reserved Reading location - IP/workstation name: [email or web address]
[2018-05-26 19:18] LABS: ABSOLUTE EOSINOPHILS # (AUTO) 0.1 10^3/uL (0.0-0.6); ABSOLUTE LYMPHOCYTES (AUTO) 2.1 10^3/uL (0.5-4.7); ABSOLUTE MONOCYTES (AUTO) 0.6 10^3/uL (0.1-1.4); ABSOLUTE NEUT (AUTO) 3.9 10^3/uL (1.7-8.2); BASOPHILS % (AUTO) 0.5 % (0-2); EOSINOPHILS % (AUTO) 2.2 % (0-6); HEMATOCRIT 37.4 % (36.0-47.0); HEMOGLOBIN 12.5 g/dL (12.0-15.5); LYMPHOCYTES % (AUTO) 31.3 % (13-45); MEAN CORPUSCULAR HEMOGLOBIN 28.9 pg (27.0-33.4); MEAN CORPUSCULAR HGB CONC 33.4 g/dL (32.0-36.0); MEAN CORPUSCULAR VOLUME 87 fl (80-97); MONOCYTES % (AUTO) 8.2 % (3-13); PLATELET COUNT 305 10^3/uL (150-450); RED BLOOD COUNT 4.31 10^6/uL (3.72-5.28); RED CELL DISTRIBUTION WIDTH 14.4 % (11.5-14.0); SEGMENTED NEUTROPHILS % (AUTO) 57.8 % (42-78); TOTAL CELLS COUNTED % (AUTO) 100 %; WHITE BLOOD COUNT 6.7 10^3/uL (4.0-10.5)
[2018-05-26 19:30] LABS: ALANINE AMINOTRANSFERASE 37 U/L (9-52); ALBUMIN 3.9 g/dL (3.5-5.0); ALKALINE PHOSPHATASE 94 U/L (38-126); ANION GAP 7 (5-19); ASPARTATE AMINO TRANSFERASE 24 U/L (14-36); BILIRUBIN,DIRECT 0.1 mg/dL (0.0-0.4); BILIRUBIN,TOTAL 0.1 mg/dL (0.2-1.3); BLOOD UREA NITROGEN 18 mg/dL (7-20); CALCIUM 9.1 mg/dL (8.4-10.2); CARBON DIOXIDE 26 mmol/L (22-30); CHLORIDE 107 mmol/L (98-107); GLUCOSE 98 mg/dL (75-110); POTASSIUM 4.4 mmol/L (3.6-5.0); TOTAL PROTEIN 6.6 g/dL (6.3-8.2)
--- NOTE | 2018-05-26 19:59 | ER Document Report ---
ED General - General Chief Complaint: Numbness Stated Complaint: RIGHT SIDE BODY TINGLING,HANDS NUMB Time Seen by Provider: 05/26/18 18:44 Mode of Arrival: Ambulatory Notes: Patient is a 62-year-old female with a past medical history of hypertension, evaluated in the emergency department yesterday for diplopia, had a normal MRI and CT of the head that time who presents with complaints of intermittent paresthesias the right side of her body today as well as ongoing diplopia. Describes a sensation on the right side of her body as being along the top of her head, right arm and right leg more dominant in the hand and foot of the right side. States that the paresthesias come and go. Nothing seems to improve or worsen the symptoms. No history of similar symptoms in the past. Diplopia is unchanged relative to yesterday. Denies any focal weakness, loss of sensation, or difficulty ambulating. No head trauma. Headache, nausea, vomiting, fever or constitutional symptoms. Has not seen her general physician regarding today's concerns. TRAVEL OUTSIDE OF THE [place] IN LAST 30 DAYS: No - Related Data Allergies/Adverse Reactions: adhesive tape Allergy (Verified 11/01/17 16:06) Past Medical History - General Information source: Patient - Social History Smoking Status: Never Smoker Frequency of alcohol use: None Drug Abuse: None Lives with: Family Family History: Reviewed & Not Pertinent - Past Medical History Cardiac Medical History: Denies: Hx Coronary Artery Disease, Hx Heart Attack, Hx Hypertension Pulmonary Medical History: Denies: Hx Asthma, Hx Bronchitis, Hx COPD, Hx Pneumonia Neurological Medical History: Denies: Hx Cerebrovascular Accident, Hx Seizures Endocrine Medical History: Reports: Hx Diabetes Mellitus Type 2 - "boderline" Renal/ Medical History: Denies: Hx Peritoneal Dialysis GI Medical History: Reports: Hx Gastroesophageal Reflux Disease, Hx Hiatal Hernia. Denies: Hx Hepatitis, Hx Ulcer Musculoskeletal Medical History: Reports Hx Arthritis Infectious Medical History: Denies: Hx Hepatitis Past Surgical History: Reports: Hx Section - x2, Hx Gastric Bypass Surgery, Hx Tonsillectomy - and Addenoids. Denies: Hx Hysterectomy, Hx Mastectomy, Hx Open Heart Surgery, Hx Pacemaker - Immunizations Immunizations up to date: No Hx Diphtheria, Pertussis, Tetanus Vaccination: Yes Review of Systems - Review of Systems Notes: Constitutional: Negative for fever. HENT: Negative for sore throat. Eyes: Positive for diplopia Cardiovascular: Negative for chest pain. Respiratory: Negative for shortness of breath. Gastrointestinal: Negative for abdominal pain, vomiting or diarrhea. Genitourinary: Negative for dysuria. Musculoskeletal: Negative for back pain. Skin: Negative for rash. Neurological: Negative for headaches, positive for paresthesias to the right side 10 point ROS negative except as marked above and in HPI. Physical Exam - Vital signs Vitals: Pulse Ox 98 05/26/18 18:59 Interpretation: Normal Notes: PHYSICAL EXAMINATION: GENERAL: Well-appearing, well-nourished and in no acute distress. HEAD: Atraumatic, normocephalic. EYES: Pupils equal round and reactive to light, cranial nerve palsy on the left with unable to fully pull the left eye to the temporal aspect extraocular motions otherwise intact ENT: nares patent, oropharynx clear without exudates. Moist mucous membranes. NECK: Normal range of motion, supple without lymphadenopathy LUNGS: Breath sounds clear to auscultation bilaterally and equal. No wheezes rales or rhonchi. HEART: Regular rate and rhythm without murmurs ABDOMEN: Soft, nontender, normoactive bowel sounds. No guarding, no rebound. No masses appreciated. EXTREMITIES: Normal range of motion, no pitting or edema. No cyanosis. NEUROLOGICAL: Face symmetric. Tongue protrudes midline. Extraocular motions as above. Pupils are 2 mm and equally reactive. Normal speech, normal gait. 5 out of 5 strength in both the distal and proximal upper and lower extremities bilaterally. Sensation is grossly intact throughout. Finger to nose testing normal. Pronator drift normal. PSYCH: Normal mood, normal affect. SKIN: Warm, Dry, normal turgor, no rashes or lesions noted. Course - Re-evaluation Re-evalutation: 05/26/18 19:59 Patient presents with complaints of ongoing diplopia as well as intermittent paresthesias to her right arm, right leg and the right side of her head. Patient states that her paresthesias are intermittent, most dominant in her right hand and foot. She denies any true loss of sensation, weakness, difficulty walking, aphasia, dysarthria or any additional symptoms. Of note, the patient's diplopia is due to a cranial nerve palsy as she has almost complete paralysis of her lateral rectus muscle on the left side. Patient had an extensive evaluation with radiology yesterday including an MRI and CT of her head which are noted to be unremarkable. She will follow-up with ophthalmology as an outpatient. In regards to her paresthesias the exact etiology is uncertain but does not appear to be from an acute stroke. The patient has an NIH stroke scale of 0. She has absolutely no loss of sensation. Sharp and dull sensation intact bilaterally, no significant difference between right and left. Two-point discrimination likewise intact. Ambulates without any difficulty of any kind. I have advised that the patient should follow-up with her primary care doctor regarding his paresthesias. The remainder of her laboratories as well as a CT of her head done in triage are noted to be normal. At this time will discharge with return precautions and follow-up recommendations. Verbal discharge instructions given a the bedside and opportunity for questions given. Medication warnings reviewed. Patient is in agreement with this plan and has verbalized understanding of return precautions and the need for primary care follow-up in the next 24-72 hours. - Vital Signs Vital signs: Temp Pulse Resp BP Pulse Ox 98.5 F 63 23 H 150/92 H 99 05/26/18 19:05 05/26/18 19:05 05/26/18 20:01 05/26/18 20:01 05/26/18 20:01 - Laboratory Result Diagrams: 05/26/18 19:06 05/26/18 19:06 Laboratory results interpreted by me: 05/26/18 05/26/18 19:06 19:06 RDW 14.4 H Total Bilirubin 0.1 L - Diagnostic Test Radiology reviewed: Image reviewed, Reports reviewed Radiology results interpreted by me: 05/26/18 20:01 CT head: No acute intracranial bleed or mass Discharge - Discharge Clinical Impression: Paresthesias/numbness, Diplopia Cranial nerve palsy Qualifiers: Laterality: left Qualified Code(s): H49.22 - Sixth [abducent] nerve palsy, left eye Condition: Fair Disposition: HOME, SELF-CARE Additional Instructions: Your symptoms are secondary to a cranial nerve palsy that is causing your double vision. The tingling sensation in your right side and something called paresthesias and is very unlikely related to an acute stroke. Your neurologic exam is normal today. You do need to follow-up with Dr. Pemberotn as scheduled regarding cranial nerve palsy. The CT scan of your head is normal today. Please return if you develop loss of sensation, weakness, difficulty walking, speech impairment, confusion, or any other symptoms that are worrisome to you. Referrals: TANNER BOSCH MD [Primary Care Provider] - Follow up tomorrow
[2018-05-26 20:53] VITALS: BP 150/92
== END 2018-05-26 21:01 | disposition home or self-care (01) ==
LOC: ER 18:38
DX: H53.2 Diplopia (principal); H49.22 Sixth [abducent] nerve palsy, left eye; R20.0 Anesthesia of skin
CPT/HCPCS: 36415; 70450; 80053; 82962; 85025; 99284

== ENCOUNTER 2018-05-29 13:11 | Emergency (ER) | payer MEDICARE, OTHER ==
--- NOTE | 2018-05-29 15:11 | ER Document Report ---
ED Medical Screen (RME) - General Chief Complaint: Numbness Stated Complaint: RIGHT SIDED NUMBNESS Time Seen by Provider: 05/29/18 15:02 Primary Care Provider: TANNER BOSCH MD [Primary Care Provider] - Follow up as needed Notes: 62-year-old female patient with multiple neurological complaints, had negative MRI of the head and CT scan of the head 3 days ago. She has been sent back by her tobacco sweeper to get an MRI with contrast and an MRV. I have greeted and performed a rapid initial assessment of this patient. A comprehensive ED assessment and evaluation of the patient, analysis of test results and completion of the medical decision making process will be conducted by additional ED providers. TRAVEL OUTSIDE OF THE [place] IN LAST 30 DAYS: No - Related Data Allergies/Adverse Reactions: adhesive tape Allergy (Verified 05/29/18 14:59) No Known Drug Allergies Allergy (Verified 05/29/18 14:59) Past Medical History - Social History Chew tobacco use (# tins/day): No Frequency of alcohol use: None Drug Abuse: None - Past Medical History Cardiac Medical History: Denies: Hx Coronary Artery Disease, Hx Heart Attack, Hx Hypertension Pulmonary Medical History: Denies: Hx Asthma, Hx Bronchitis, Hx COPD, Hx Pneumonia Neurological Medical History: Denies: Hx Cerebrovascular Accident, Hx Seizures Endocrine Medical History: Reports: Hx Diabetes Mellitus Type 2 - "boderline" Renal/ Medical History: Denies: Hx Peritoneal Dialysis GI Medical History: Reports: Hx Gastroesophageal Reflux Disease, Hx Hiatal Hernia. Denies: Hx Hepatitis, Hx Ulcer Musculoskeltal Medical History: Reports Hx Arthritis Infectious Medical History: Denies: Hx Hepatitis Past Surgical History: Reports: Hx Abdominal Surgery - GBP, Hx Section - x2, Hx Gastric Bypass Surgery, Hx Tonsillectomy - and Addenoids. Denies: Hx Hysterectomy, Hx Mastectomy, Hx Open Heart Surgery, Hx Pacemaker - Immunizations Immunizations up to date: No Hx Diphtheria, Pertussis, Tetanus Vaccination: Yes History of Influenza Vaccine for 02/2017 - 07/2017 Season: Yes Influenza Administration Date for 02/2017 - 07/2017 Season: 02/04/17 Physical Exam - Vital signs Vitals: Temp Pulse Resp BP Pulse Ox 97.3 F 64 18 118/62 99 05/29/18 13:35 05/29/18 13:35 05/29/18 13:35 05/29/18 13:35 05/29/18 13:35 Course - Vital Signs Vital signs: Temp Pulse Resp BP Pulse Ox 97.3 F 64 18 118/62 99 05/29/18 13:35 05/29/18 13:35 05/29/18 13:35 05/29/18 13:35 05/29/18 13:35 Doctor's Discharge - Discharge Referrals: TANNER BOSCH MD [Primary Care Provider] - Follow up as needed
--- NOTE | 2018-05-29 16:09 | RADIOLOGY REPORT (SQ) ---
EXAM DESCRIPTION: MRI HEAD WITH; MRA HEAD WITHOUT COMPLETED DATE/TIME: 05/29/2018 3:57 pm REASON FOR STUDY: right weakness ? stroke; MRV right weakness ? stroke COMPARISON: MR brain, 05/25/2018 TECHNIQUE: Multiplanar imaging includes noncontrasted T1, T2, FLAIR, diffusion with ADC map and post gadolinium contrast T1 sequences. MRV with 3D reconstructions also performed. Images stored on PACS . CONTRAST TYPE AND DOSE: Not reported, please see written documentation RENAL FUNCTION: Not reported, please see written documentation LIMITATIONS: None. FINDINGS: ANATOMY: No anomalies. Normal vascular flow voids. Pituitary fossa normal. CSF SPACES: Normal in size and contour. No hemorrhage. CEREBRUM: Sulci and gyri normal in size and contour. Normal white matter signal on FLAIR imaging. No evidence of hemorrhage, mass, or extraaxial fluid collection. No abnormal enhancement post contrast. POSTERIOR FOSSA: No signal alteration. No hemorrhage. No edema, masses, or mass effect. Internal krista tory canals, cerebellopontine angles, mastoids normal. No enhancing lesions. No abnormal enhancement post contrast. DIFFUSION IMAGING: Negative for acute or subacute infarction. ORBITS: No masses. Globes normal. PARANASAL SINUSES: No fluid levels. Mucosa normal. MR VENOGRAM: No evidence of thrombosis. There is a right dominant transverse sinus system. OTHER: No other significant finding. IMPRESSION: 1. Unremarkable MR examination of the brain. No abnormal intracranial contrast enhancem ent. 2. Normal MR venogram. No evidence of thrombosis. EVIDENCE OF ACUTE STROKE: NO. TECHNICAL DOCUMENTATION: JOB ID: [id number] [employer]- All Rights Reserved Reading location - IP/workstation name: [email or web address]
--- NOTE | 2018-05-29 17:20 | ER Document Report ---
ED Neuro Symptoms/Deficit - General Chief Complaint: Numbness Stated Complaint: RIGHT SIDED NUMBNESS Time Seen by Provider: 05/29/18 15:02 Primary Care Provider: TANNER BOSCH MD [Primary Care Provider] - Follow up as needed Notes: 62-year-old female to emergency department chief complaint of worsening neurolog ical symptoms. Patient has been seen in the emergency department twice. Seen by primary care doctor. Seen by neurologist. Seen by an senior informatica etl developer. Subsequently sent here today by senior informatica etl developer for an MRI with MRV to assess for possible cavernous sinus thrombosis. This was reportedly normal. Patient states that her symptoms came on Sunday relatively suddenly after she received a Toradol shot in a urgent care. She developed blurred vision with diplopia and some weakness on one side of her face. Over the weekend and throughout this week she has had progressive symptoms. Having difficulty with ambulation. Persistent double vision. Weakness on the right arm and right leg. Patient denies any fever, chills, sweats. Does have chronic pain and does take oxycodone. Has recently been started on phentermine by her primary care doctor, Dr. Bosch. Patient also takes Cymbalta for her chronic pain. She has been on the Cymbalta for approximately 3 months. Was recently taken off of tramadol and started on oxycodone. No seizure-like activity. No other issues. Denies any severe headache. TRAVEL OUTSIDE OF THE [place] IN LAST 30 DAYS: No - HPI Patient complains to provider of: Difficulty standing, Difficulty walking, Facial Droop, Paresthesia, Speech Impairment, Vision Changes, Weakness Onset: Last week Symptoms are: Constant, Worse/persistent Duration: Continues in ED Severity: Moderate Pre-existing weakness: No: Face, General, Hand, Lower extremity, Upper extremity - Related Data Allergies/Adverse Reactions: adhesive tape Allergy (Verified 05/29/18 14:59) No Known Drug Allergies Allergy (Verified 05/29/18 14:59) Past Medical History - General Information source: Patient - Social History Smoking Status: Never Smoker Chew tobacco use (# tins/day): No Frequency of alcohol use: None Drug Abuse: None Lives with: Family Family History: Reviewed & Not Pertinent Patient has suicidal ideation: No Patient has homicidal ideation: No - Past Medical History Cardiac Medical History: Denies: Hx Coronary Artery Disease, Hx Heart Attack, Hx Hypertension Pulmonary Medical History: Denies: Hx Asthma, Hx Bronchitis, Hx COPD, Hx Pneumonia Neurological Medical History: Denies: Hx Cerebrovascular Accident, Hx Seizures Endocrine Medical History: Reports: Hx Diabetes Mellitus Type 2 - "boderline" Renal/ Medical History: Denies: Hx Peritoneal Dialysis GI Medical History: Reports: Hx Gastroesophageal Reflux Disease, Hx Hiatal Hernia. Denies: Hx Hepatitis, Hx Ulcer Musculoskeletal Medical History: Reports Hx Arthritis Infectious Medical History: Denies: Hx Hepatitis Past Surgical History: Reports: Hx Abdominal Surgery - GBP, Hx Section - x2, Hx Gastric Bypass Surgery, Hx Tonsillectomy - and Addenoids. Denies: Hx Hysterectomy, Hx Mastectomy, Hx Open Heart Surgery, Hx Pacemaker - Immunizations Immunizations up to date: No Hx Diphtheria, Pertussis, Tetanus Vaccination: Yes Review of Systems - Review of Systems Notes: Constitutional: denies: Chills, Diaphoresis, Fever, Malaise, Weakness EENT: denies: Eye discharge, Blurred vision, Tearing, Double vision, Nose c ongestion, Nose discharge, Throat swelling, Mouth pain Cardiovascular: denies: Palpitations, Heart racing, Orthopnea, Dyspnea, Chest pain Respiratory: denies: Cough, Hurts to breathe, Wheezing, Shortness of breath Gastrointestinal: denies: Abdominal pain, Diarrhea, Nausea, Vomiting, Black stools, bright red blood in stool Genitourinary: denies: Burning, Dysuria, Discharge, Frequency, Flank pain, Hematuria Musculoskeletal: denies: Joint pain, Joint swelling, Muscle pain, Muscle stiffness, back pain Hematologic/Lymphatic: denies: Anemia, Easy bleeding, Easy bruising, Blood clots Neurological/Psychological: For the HPI patient is complaining of double vision, weakness of the right upper extremity and right lower extremity with as well as difficulty with speech and facial weakness. Skin: No lesions, no masses, no skin breakdown, no abscesses Physical Exam - Vital signs Vitals: Temp Pulse Resp BP Pulse Ox 97.3 F 64 18 118/62 99 05/29/18 13:35 05/29/18 13:35 05/29/18 13:35 05/29/18 13:35 05/29/18 13:35 Interpretation: Normal - General General appearance: Appears well, Alert - HEENT Head: Normocephalic, Atraumatic Eyes: Normal Pupils: PERRL - Respiratory Respiratory status: No respiratory distress Chest status: Nontender Breath sounds: Normal Chest palpation: Normal - Cardiovascular Rhythm: Regular Heart sounds: Normal auscultation Murmur: No - Abdominal Inspection: Normal Distension: No distension Bowel sounds: Normal Tenderness: Nontender Organomegaly: No organomegaly - Back Back: Normal, Nontender - Extremities General upper extremity: Normal inspection, Nontender, Normal color, Normal ROM, Normal temperature General lower extremity: Normal inspection, Nontender, Normal color, Normal ROM, Normal temperature, Normal weight bearing. No: Marilia's sign - Neurological Neuro grossly intact: No Cognition: Normal Orientation: AAOx4 Urszula Coma Scale Eye Opening: Spontaneous Urszula Coma Scale Verbal: Oriented Urszula Coma Scale Motor: Obeys Commands Urszula Coma Scale Total: 15 Speech: Other - Patient able to speak but words are slightly strained. 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 Cerebellar coordination: Gait ataxia Motor strength normal: LUE, LLE. No: RUE, RLE - Deficits noted mild strength decrease of the right upper and right lower remedies. Additional motor exam normals: Pronator drift, Weakness. No: Equal business objects analyst Sensory: Altered light touch - The right side. - Psychological Associated symptoms: Normal affect, Normal mood - Skin Skin Temperature: Warm Skin Moisture: Dry Skin Color: Normal Course - Re-evaluation Re-evalutation: 05/29/18 17:20 Patient has obvious neuro deficits which have been present and getting worse s sunday. Uncertain etiology. Has had a negative MRI and a negative head CT. Patient will need more likely to be seen by neurology. I am concerned about a stroke however you would think that that would be seen on an MRI. It is possible that she could potentially have a migraine causing his symptoms. She does have a mild headache at this time. Will consult with neurology. I am adding on some additional studies including inflammatory markers, Lyme's panel. Basic labs ordered. EKG ordered. Ultrasound of the carotids ordered. 05/29/18 17:21 05/29/18 18:43 Time with the negative MRI negative CT scan consulted with neurology at [facility]. They recommend transfer as well as getting spinal tap and multiple antibiotics started. 01/23/19 19:26 Patient does not want to go to [facility] now. I have consulted with hospitalist in [place]. They are on [facility]. Now they want to discuss possibility of transferring to [facility]. I am waiting on a call back from [facility] at this time as well. 05/29/18 21:21 The hospitalist service has been consulted at [facility]. They have accepted the patient. I did speak with the neurologist, Dr Smith, there as well. I have asked that we do not do a lumbar puncture. They have asked that we do not start on antibiotics and to transfer her immediately. Awaiting transport at this time. 05/29/18 21:23 Laboratory 05/29/18 05/29/18 05/29/18 17:20 17:20 17:20 WBC 6.9 RBC 4.62 Hgb 13.4 Hct 40.4 MCV 87 MCH 28.9 MCHC 33.1 RDW 14.8 H Plt Count 323 Seg Neutrophils % 55.3 Lymphocytes % 34.4 Monocytes % 7.2 Eosinophils % 2.3 Basophils % 0.8 Absolute Neutrophils 3.8 Absolute Lymphocytes 2.4 Absolute Monocytes 0.5 Absolute Eosinophils 0.2 Absolute Basophils 0.1 ESR 28 PT 12.2 INR 0.87 APTT 27.2 Sodium 139.1 Potassium 4.5 Chloride 103 Carbon Dioxide 30 Anion Gap 6 BUN 13 Creatinine 0.62 Est GFR ( Amer) > 60 Est GFR (Non-Af Amer) > 60 Glucose 93 Calcium 9.8 Total Bilirubin 0.4 Direct Bilirubin 0.1 Neonat Total Bilirubin Not Reportable Neonat Direct Bilirubin Not Reportable Neonat Indirect Bili Not Reportable AST 27 ALT 43 Alkaline Phosphatase 110 C-React Prot High Sens Total Protein 7.3 Albumin 4.4 Urine Color Urine Appearance Urine pH Ur Specific Montour Urine Protein Urine Glucose (UA) Urine Ketones Urine Blood Urine Nitrite Urine Bilirubin Urine Urobilinogen Ur Leukocyte Esterase Urine WBC (Auto) Urine RBC (Auto) U Hyaline Cast (Auto) Urine Bacteria (Auto) Squamous Epi Cells Auto Urine Mucus (Auto) Urine Ascorbic Acid 05/29/18 05/29/18 17:20 20:39 WBC RBC Hgb Hct MCV MCH MCHC RDW Plt Count Seg Neutrophils % Lymphocytes % Monocytes % Eosinophils % Basophils % Absolute Neutrophils Absolute Lymphocytes Absolute Monocytes Absolute Eosinophils Absolute Basophils ESR PT INR APTT Sodium Potassium Chloride Carbon Dioxide Anion Gap BUN Creatinine Est GFR ( Amer) Est GFR (Non-Af Amer) Glucose Calcium Total Bilirubin Direct Bilirubin Neonat Total Bilirubin Neonat Direct Bilirubin Neonat Indirect Bili AST ALT Alkaline Phosphatase C-React Prot High Sens 0.4647 Total Protein Albumin Urine Color YELLOW Urine Appearance SLIGHTLY-CLOUDY Urine pH 5.0 Ur Specific Montour 1.024 Urine Protein NEGATIVE Urine Glucose (UA) NEGATIVE Urine Ketones NEGATIVE Urine Blood NEGATIVE Urine Nitrite NEGATIVE Urine Bilirubin NEGATIVE Urine Urobilinogen 2.0 H Ur Leukocyte Esterase MODERATE H Urine WBC (Auto) 26 Urine RBC (Auto) 0 U Hyaline Cast (Auto) 44 Urine Bacteria (Auto) TRACE Squamous Epi Cells Auto 1 Urine Mucus (Auto) RARE Urine Ascorbic Acid NEGATIVE Brain MRI with MRA 05/29/18 15:09 IMPRESSION: 1. Unremarkable MR examination of the brain. No abnormal intracranial contrast enhancement. 2. Normal MR venogram. No evidence of thrombosis. EVIDENCE OF ACUTE STROKE: NO. Head MRI 05/29/18 15:09 IMPRESSION: 1. Unremarkable MR examination of the brain. No abnormal intracranial contrast enhancement. 2. Normal MR venogram. No evidence of thrombosis. EVIDENCE OF ACUTE STROKE: NO. - Vital Signs Vital signs: Temp Pulse Resp BP Pulse Ox 97.8 F 84 18 119/62 99 05/29/18 19:38 05/29/18 19:38 05/29/18 19:38 05/29/18 19:38 05/29/18 19:38 - Laboratory Result Diagrams: 05/29/18 17:20 05/29/18 17:20 Laboratory results interpreted by me: 05/29/18 05/29/18 17:20 20:39 RDW 14.8 H Urine Urobilinogen 2.0 H Ur Leukocyte Esterase MODERATE H Discharge - Discharge Clinical Impression: Right sided weakness Cranial nerve palsy Qualifiers: Laterality: left Qualified Code(s): H49.22 - Sixth [abducent] nerve palsy, left eye Condition: Good Disposition: [facility] Referrals: TANNER BOSCH MD [Primary Care Provider] - Follow up as needed
[2018-05-29 17:33] LABS: ABSOLUTE BASOPHILS # (AUTO) 0.1 10^3/uL (0.0-0.2); ABSOLUTE EOSINOPHILS # (AUTO) 0.2 10^3/uL (0.0-0.6); ABSOLUTE LYMPHOCYTES (AUTO) 2.4 10^3/uL (0.5-4.7); ABSOLUTE MONOCYTES (AUTO) 0.5 10^3/uL (0.1-1.4); ABSOLUTE NEUT (AUTO) 3.8 10^3/uL (1.7-8.2); BASOPHILS % (AUTO) 0.8 % (0-2); EOSINOPHILS % (AUTO) 2.3 % (0-6); HEMATOCRIT 40.4 % (36.0-47.0); HEMOGLOBIN 13.4 g/dL (12.0-15.5); LYMPHOCYTES % (AUTO) 34.4 % (13-45); MEAN CORPUSCULAR HEMOGLOBIN 28.9 pg (27.0-33.4); MEAN CORPUSCULAR HGB CONC 33.1 g/dL (32.0-36.0); MEAN CORPUSCULAR VOLUME 87 fl (80-97); MONOCYTES % (AUTO) 7.2 % (3-13); PLATELET COUNT 323 10^3/uL (150-450); RED BLOOD COUNT 4.62 10^6/uL (3.72-5.28); RED CELL DISTRIBUTION WIDTH 14.8 % (11.5-14.0); SEGMENTED NEUTROPHILS % (AUTO) 55.3 % (42-78); TOTAL CELLS COUNTED % (AUTO) 100 %; WHITE BLOOD COUNT 6.9 10^3/uL (4.0-10.5)
[2018-05-29 17:46] LABS: INTERNATIONAL RATION (INR) 0.87; PROTHROMBIN TIME 12.2 SEC (11.4-15.4)
[2018-05-29 17:47] LABS: PARTIAL THROMBOPLASTIN TIME 27.2 SEC (23.5-35.8)
[2018-05-29 17:50] LABS: ALANINE AMINOTRANSFERASE 43 U/L (9-52); ALBUMIN 4.4 g/dL (3.5-5.0); ALKALINE PHOSPHATASE 110 U/L (38-126); ANION GAP 6 (5-19); ASPARTATE AMINO TRANSFERASE 27 U/L (14-36); BILIRUBIN,DIRECT 0.1 mg/dL (0.0-0.4); BILIRUBIN,TOTAL 0.4 mg/dL (0.2-1.3); BLOOD UREA NITROGEN 13 mg/dL (7-20); CALCIUM 9.8 mg/dL (8.4-10.2); CARBON DIOXIDE 30 mmol/L (22-30); CHLORIDE 103 mmol/L (98-107); GLUCOSE 93 mg/dL (75-110); POTASSIUM 4.5 mmol/L (3.6-5.0); SODIUM 139.1 mmol/L (137-145); TOTAL PROTEIN 7.3 g/dL (6.3-8.2)
[2018-05-29 18:11] LABS: ERYTHROCYTE SEDIMENTATION RATE 28 mm/hr (0-30)
[2018-05-29] MEDS ORDERED: LIDOCAINE 1% INJ-PF (10 MG/ML) 30 ML SDV INJ ONE (19:04)
[2018-05-29 20:54] LABS: APPEARANCE,URINE SLIGHTLY-CLOUDY; BILIRUBIN,URINE NEGATIVE (NEGATIVE); COLOR,URINE YELLOW; GLUCOSE, URINE NEGATIVE (NEGATIVE); KETONES,URINE NEGATIVE (NEGATIVE); LEUKOCYTE ESTERASE,URINE MODERATE (NEGATIVE); NITRITE,URINE NEGATIVE (NEGATIVE); PROTEIN,URINE NEGATIVE (NEGATIVE); URINE SPECIFIC GRAVITY 1.024
[2018-05-30 00:17] VITALS: BP 106/68
--- NOTE | 2018-05-30 08:07 | EKG REPORT ---
SEVERITY:- NORMAL ECG - SINUS RHYTHM : Confirmed by: Josefina Muse MD 30-May-2018 08:06:44
--- NOTE | 2018-05-30 08:30 | RADIOLOGY REPORT (SQ) ---
EXAM DESCRIPTION: CAROTID DOPPLER COMPLETED DATE/TIME: 05/29/2018 8:18 pm REASON FOR STUDY: stroke like symptoms COMPARISON: CT brain 05/25/2018, 05/26/2018 MRI brain 05/25/2018, 05/29/2018 Intracranial MRV 05/29/2018 TECHNIQUE: Grayscale ultrasound, Doppler velocity and spectra, and color Doppler images acquired of the extra-cranial carotid and vertebral arteries. Images stored on PACS. LIMITATIONS: None. FINDINGS: RIGHT CAROTID CCA Velocities: Within normal limits. Right common carotid artery peak systolic velocity 0.65 m/sec ICA Velocities Peak systolic 0.72 m/s. End diastolic 0.17 m/s. Proximal ICA/CCA peak systolic ratio 1.0. Spectra normal. Minimal soft plaque at the right carotid bifurcation LEFT CAROTID CCA Velocities: Within normal limits. Left common carotid peak systolic velocity 0.68 m/sec ICA Velocities Peak systolic 0.65 m/s. End diastolic 0.21 m/s. Proximal ICA/CCA peak systolic ratio 1.2. Spectra normal. No significant plaque. VERTEBRAL ARTERIES: Antegrade flow. Normal waveforms. SUBCLAVIAN ARTERIES: Not evaluated OTHER: No other significant finding. IMPRESSION: NO HEMODYNAMICALLY SIGNIFICANT STENOSIS. COMMENT: Quality ID #[id number]: Velocity criteria are extrapolated from the diameter data as defined by t he Society of Radiologists in Ultrasound Consensus Conference. Radiology 2003: 229; 340-346. TECHNICAL DOCUMENTATION: JOB ID: [id number] [email or web address]- All Rights Reserved Reading location - IP/workstation name: [email or web address]
[2018-05-31 13:38] LABS: ANTICHROMATIN AB <0.2 AI (0.0-0.9); CENTROMERE B AB <0.2 AI (0.0-0.9); JO-1 ANTIBODY (ANACOMP) <0.2 AI (0.0-0.9); SJOGREN'S ANTI-SS-B AB <0.2 AI (0.0-0.9); SJOGREN'S SS-A ANTIBODY <0.2 AI (0.0-0.9)
[2018-05-31 15:47] LABS: DNA DOUBLE STRAND ANTIBODY ANA 17 IU/mL (0-9); LYME DISEASE IGM AB <0.80 index (0.00-0.79)
== END 2018-05-30 00:14 | disposition short-term general hospital (02) ==
LOC: ER 13:11
DX: R53.1 Weakness (principal); H49.22 Sixth [abducent] nerve palsy, left eye; H53.8 Other visual disturbances; H53.2 Diplopia; R29.810 Facial weakness; R26.2 Difficulty in walking, not elsewhere classified; E11.9 Type 2 diabetes mellitus without complications; Z98.84 Bariatric surgery status
CPT/HCPCS: 93005; 36415; 85025; 85652; 85610; 85730; 80053; 81001; 86141; 86618 ×2; 86617 ×2; 86225; 86235 ×8; 93880; 70552; 70544; 93010; A9576; J3490

== ENCOUNTER 2018-07-03 07:52 | Outpatient (CLI) | payer MEDICARE, OTHER ==
[~2018-07-03 07:52] MED LIST: FERUMOXYTOL (NON-ESRD) 510 MG/NS 100 ML IV PRN; NORMAL SALINE 250 ML IV PRN
[2018-07-03 08:49] VITALS: BP 113/66
== END 2018-07-03 09:39 | disposition home or self-care (01) ==
LOC: II 07:52 → 5TH 07:53 → II 09:39
PROVIDERS: ATTEND Internal Medicine
PROC: 3E033GC Introduction of Other Therapeutic Substance into Peripheral Vein, Percutaneous Approach (ICD-10-PCS; principal; 2018-07-03)
DX: D50.8 Other iron deficiency anemias (principal); K90.9 Intestinal malabsorption, unspecified
CPT/HCPCS: 96365; Q0138

== ENCOUNTER → 2018-07-30 | Outpatient (CLI) | payer MEDICARE, OTHER ==
--- NOTE | 2018-07-30 13:13 | RADIOLOGY REPORT (SQ) ---
EXAM DESCRIPTION: RIBS RIGHT W/PA CHEST COMPLETED DATE/TIME: 07/30/2018 1:07 pm REASON FOR STUDY: R07.1 CHEST PAIN ON BREATHING R07.1 CHEST PAIN ON BREATHING COMPARISON: None. TECHNIQUE: Frontal view of the chest and additional views of the right ribs acquired. NUMBER OF VIEWS: Five view. LIMITATIONS: None. FINDINGS: FRONTAL CXR: No pneumothorax. No pleural effusion. No atelectasis or infiltrates. Loop recorder is in place. RIBS: No displaced rib fractures. No lytic or blastic bony lesions. OTHER: No other significant finding. IMPRESSION: NO PNEUMOTHORAX. NO DISPLACED RIB FRACTURES. COMMENT: SITE OF TRAUMA/COMPLAINT MARKED/STAMP COMPLETED: NO. TECHNICAL DOCUMENTATION: JOB ID: [id number] [employer]- All Rights Reserved Reading location - IP/workstation name: [email or web address]
== END ==
LOC: RAD 12:41
PROVIDERS: ATTEND Internal Medicine
DX: R07.1 Chest pain on breathing (principal)

== ENCOUNTER 2018-11-24 09:22 | Emergency (ER) | payer MEDICARE, OTHER ==
[2018-11-24] MEDS ORDERED: KETOROLAC TROMETHAMINE 60 MG/2 ML SDV IM ONE (09:45)
--- NOTE | 2018-11-24 09:49 | ER Document Report ---
HPI - HPI Time Seen by Provider: 11/24/18 09:37 Pain Level: 5 Notes: Patient is a 63-year-old female with a history of CVA, hypercholesterolemia, chronic joint pains who presents complaining of low back and buttock pain status post fall 3 days ago. Patient states that she fell on her low back/buttock on a root outside and has had pain since then. She was evaluated in urgent care, but states that she did not have any imaging done and continues to have pain despite pain medicine. Patient states that the pain does not radiate. She is able to ambulate and weightbear. Standing for prolonged period or sitting down worsens her symptoms. She is able to eat and drink without difficulty. She is urinating normally and having normal bowel movements. She is not on any blood thinning medications aside from aspirin. Denies any headache, fever, head injury, LOC, neck pain, changes in vision/speech/mentation/hearing, URI, sore throat, chest pain, palpitations, syncope, cough, shortness of breath, wheeze, dyspnea, abdominal pain, nausea/vomiting/diarrhea, urinary retention, dysuria, hematuria, loss of control of bowel or bladder, numbness/tingling, saddle anesthesia, muscle paralysis/weakness, or rash. - ROS Systems Reviewed and Negative: Yes All other systems reviewed and negative - REPRODUCTIVE Reproductive: DENIES: : Past Medical History - Social History Smoking Status: Never Smoker Family History: Reviewed & Not Pertinent - Past Medical History Cardiac Medical History: Denies: Hx Coronary Artery Disease, Hx Heart Attack, Hx Hypertension Pulmonary Medical History: Denies: Hx Asthma, Hx Bronchitis, Hx COPD, Hx Pneumonia Neurological Medical History: Denies: Hx Cerebrovascular Accident, Hx Seizures Endocrine Medical History: Reports: Hx Diabetes Mellitus Type 2 - "boderline" Renal/ Medical History: Denies: Hx Peritoneal Dialysis GI Medical History: Reports: Hx Gastroesophageal Reflux Disease, Hx Hiatal Hernia. Denies: Hx Hepatitis, Hx Ulcer Musculoskeletal Medical History: Reports Hx Arthritis Infectious Medical History: Denies: Hx Hepatitis Past Surgical History: Reports: Hx Abdominal Surgery - GBP, Hx Section - x2, Hx Gastric Bypass Surgery, Hx Tonsillectomy - and Addenoids. Denies: Hx Hysterectomy, Hx Mastectomy, Hx Open Heart Surgery, Hx Pacemaker - Immunizations Immunizations up to date: No Hx Diphtheria, Pertussis, Tetanus Vaccination: Yes Vertical Provider Document - CONSTITUTIONAL Agree With Documented VS: Yes Notes: PHYSICAL EXAMINATION: GENERAL: Well-appearing, well-nourished and in no acute distress. Obese. Neck: No midline tenderness. FROM. LUNGS: Breath sounds clear to auscultation bilaterally and equal. No wheezes rales or rhonchi. HEART: Regular rate and rhythm without murmurs, rubs, gallops. ABDOMEN: Soft, nontender, nondistended abdomen. No guarding, no rebound. Normal bowel sounds present. No CVA tenderness bilaterally. No ecchymosis. Musculoskeletal: LE's b/l: FROM to passive/active. Strength 5+/5. No deficits noted. No bony tenderness of extremities. Back: FROM to passive/active. Strength 5+/5. No vertebral point tenderness, stepoffs, or deformities. No other bony tenderness, erythema, swelling, or ecchymosis. SLR negative b/l. + tenderness to the L-paraspinal mm b/l and L5- s1 midline. + tenderness rt mid buttock. + mild rt SI jt tenderness. No foot drop Extremities: No cyanosis, clubbing, or edema b/l. Peripheral pulses 2+. Capillary refill less than 2 seconds. NEUROLOGICAL: Normal speech, normal gait. Normal sensory, motor exams. Reflexes 2+ b/l. PSYCH: Normal mood, normal affect. SKIN: Warm, Dry, normal turgor, no rashes or lesions noted. - INFECTION CONTROL TRAVEL OUTSIDE OF THE [place] IN LAST 30 DAYS: No Course - Re-evaluation Re-evalutation: 11/24/18 Patient is an afebrile, well-hydrated, 63-year-old female who presents to the ED with acute compression fx of L2. Vitals are acceptable. PE is otherwise unremarkable for any focal neurological deficits. See CT report. Patient was given Toradol. She has no significant tachycardia, tachypnea, or hypoxia. She is nontoxic-appearing and is tolerating p.o. without difficulties. There are no signs of infection. No other red flag symptoms noted. No other labs or imaging warranted at this time based on H&P. Low suspicion for any meningitis, fracture, expanding/ruptured AAA, cauda equina syndrome, epidural mass lesion/abscess, herniated disc causing severe spinal stenosis, or other systemic infection at this time. Patient is aware that this condition can change from initial presentation and that she needs monitor symptoms closely for any acute changes. Conservative measures otherwise for symptoms. Recheck with your PCM in 3-5 days. Schedule an appointment with orthopedics for further evaluation and management. Return to the ED with any worsening/concerning symptoms otherwise as reviewed discharge. Patient is in agreement. - Vital Signs Vital signs: Temp Pulse Resp BP Pulse Ox 97.8 F 93 18 116/60 97 11/24/18 09:27 11/24/18 09:27 11/24/18 09:27 11/24/18 09:27 11/24/18 09:27 Discharge - Discharge Clinical Impression: Compression fracture Low back pain Qualifiers: Chronicity: acute Back pain laterality: bilateral Sciatica presence: without sciatica Qualified Code(s): M54.5 - Low back pain Condition: Stable Disposition: HOME, SELF-CARE Instructions: Compression Fracture of the Spine ([facility]) Additional Instructions: Rest, Ice Tylenol/ibuprofen as needed Light stretches daily Strength exercises as able Moist heat and massage may help F/u with your PCP in 3-5 days for a recheck Call orthopedics to schedule an appointment for further evaluation and management Return to the ED with any worsening symptoms and/or development of fever, headache, chest pain, palpitations, syncope, shortness of breath, trouble breathing, abdominal pain, n/v/d, blood in stool/urine, loss of control of bowel/bladder, urinary retention, muscle weakness/paralysis, saddle anesthesia, numbness/tingling, or other worsening symptoms that are concerning to you. Prescriptions: Tramadol HCl [Ultram 50 mg Tablet] 50 mg PO Q4HP PRN #15 tab PRN Reason: Meloxicam [Mobic 7.5 Mg Tablet] 7.5 mg PO BID PRN #30 tablet PRN Reason: Referrals: TANNER BOSCH MD [Primary Care Provider] - Follow up as needed [facility] [Provider Group] - Follow up in 3-5 days
--- NOTE | 2018-11-24 11:09 | RADIOLOGY REPORT (SQ) ---
EXAM DESCRIPTION: CT LUMBAR SPINE WITHOUT COMPLETED DATE/TIME: 11/24/2018 10:21 am REASON FOR STUDY: Low back/buttock pain s/p fall COMPARISON: CT abdomen and pelvis dated 05/25/2018. TECHNIQUE: Axial images acquired through the lumbar spine without intravenous contrast. Images revi ewed with lung, soft tissue and bone windows. Reconstructed coronal and sagittal MPR images reviewed . All images stored on PACS. All CT scanners at this facility use dose modulation, iterative reconstruction, and/or weight based d osing when appropriate to reduce radiation dose to as low as reasonably achievable (ALARA). [facility]: Dose Right [facility]: CareDose [facility]: Dose Right [facility]: Teradose 4D [facility]: Smart [place] RADIATION DOSE: mGy. LIMITATIONS: None. FINDINGS: SEGMENTATION: Normal. No transitional anatomy. ALIGNMENT: Normal. VERTEBRAL BODIES: There is an acute appearing compression fracture of the superior endplate of L2 wit h approximately 20% loss of height. No encroachment of the spinal canal. There are chronic compress ion deformities of the superior endplate of L1 and L3. DISCS: Multilevel disc space narrowing with disc bulge, most pronounced at L4-L5. Study limited by l ack of intrathecal contrast. PEDICLES, TRANSVERSE PROCESSES: No fractures. No dislocation. No acute findings. FACETS, POSTERIOR ELEMENTS: Facet arthropathy. No fractures. No dislocation. No spinal stenosis. HARDWARE: None in the spine. VISUALIZED RIBS: No fractures. SOFT TISSUES: No significant or acute finding in adjacent soft tissues. OTHER: No other significant finding. IMPRESSION: 1. ACUTE APPEARING COMPRESSION FRACTURE INVOLVING THE SUPERIOR ENDPLATE OF L2 WITH APPROXIMATELY 20% LOSS OF HEIGHT. 2. MULTILEVEL CHRONIC DEGENERATIVE CHANGES. OLD COMPRESSION DEFORMITIES OF THE SUPERIOR ENDPLATES OF L1 AND L3. TECHNICAL DOCUMENTATION: JOB ID: [id number] Quality ID # [id number]: Final reports with documentation of one or more dose reduction techniques (e.g., Au tomated exposure control, adjustment of the mA and/or kV according to patient size, use of iterative reconstruction technique) 2010 [employer]- All Rights Reserved Reading location - IP/workstation name: [email or web address]
--- NOTE | 2018-11-24 11:11 | RADIOLOGY REPORT (SQ) ---
EXAM DESCRIPTION: CT PELVIS WITHOUT COMPLETED DATE/TIME: 11/24/2018 10:21 am REASON FOR STUDY: Low back/buttock pain s/p fall COMPARISON: None. TECHNIQUE: CT scan of the pelvis performed without intravenous or oral contrast. Images reviewed wi th soft tissue and bone windows. Reconstructed coronal and sagittal MPR images reviewed. All images stored on PACS. All CT scanners at this facility use dose modulation, iterative reconstruction, and/or weight based d osing when appropriate to reduce radiation dose to as low as reasonably achievable (ALARA). [facility]: Dose Right [facility]: CareDose [facility]: Dose Right [facility]: Teradose 4D [facility]: MoboFree RADIATION DOSE: CT Rad equipment meets quality standard of care and radiation dose reduction techniq ues were employed. CTDIvol: 19.3 mGy. DLP: 726 mGy-cm. mGy. LIMITATIONS: None. FINDINGS: PELVIC BONES: No acute fracture. No worrisome bone lesions. VISUALIZED SPINE: No acute findings. HIP(S): No acute fracture or dislocation. No worrisome bone lesions. PELVIC SOFT TISSUES: No significant findings. EXTRAPELVIC SOFT TISSUES: No significant findings. OTHER: No other significant finding. IMPRESSION: NO ACUTE OR SIGNIFICANT FINDINGS. TECHNICAL DOCUMENTATION: JOB ID: [id number] Quality ID # [id number]: Final reports with documentation of one or more dose reduction techniques (e.g., Au tomated exposure control, adjustment of the mA and/or kV according to patient size, use of iterative reconstruction technique) 2010 [employer]- All Rights Reserved Reading location - IP/workstation name: [email or web address]
[2018-11-24 11:23] VITALS: BP 119/65
== END 2018-11-24 11:28 | disposition home or self-care (01) ==
LOC: ER 09:22
DX: S32.029A Unspecified fracture of second lumbar vertebra, initial encounter for closed fracture (principal); W19.XXXA Unspecified fall, initial encounter; E78.00 Pure hypercholesterolemia, unspecified; G89.29 Other chronic pain; R73.03 Prediabetes; Z98.84 Bariatric surgery status; Z86.73 Personal history of transient ischemic attack (TIA), and cerebral infarction without residual deficits
CPT/HCPCS: 99283; 96372; 72131; 72192; J1885

== ENCOUNTER 2019-05-16 16:24 | Observation (INO) | payer MEDICARE, OTHER ==
[2019-05-16] MEDS ORDERED: INFLUENZA QUAD (6MOS+) 2019-20 VAC 0.5 ML SYR IM ONE (17:05)
[2019-05-16 18:34] LABS: HEMATOCRIT 37.8 % (36.0-47.0); HEMOGLOBIN 12.5 g/dL (12.0-15.5); MEAN CORPUSCULAR HEMOGLOBIN 28.9 pg (27.0-33.4); MEAN CORPUSCULAR VOLUME 88 fl (80-97); PLATELET COUNT 334 10^3/uL (150-450); RED BLOOD COUNT 4.32 10^6/uL (3.72-5.28); WHITE BLOOD COUNT 7.6 10^3/uL (4.0-10.5)
[2019-05-16 18:56] LABS: ALBUMIN 3.8 g/dL (3.5-5.0); ALKALINE PHOSPHATASE 119 U/L (38-126); ANION GAP 6 (5-19); ASPARTATE AMINO TRANSFERASE 51 U/L (14-36); BILIRUBIN,DIRECT 0.2 mg/dL (0.0-0.4); BILIRUBIN,TOTAL 0.3 mg/dL (0.2-1.3); BLOOD UREA NITROGEN 16 mg/dL (7-20); CARBON DIOXIDE 30 mmol/L (22-30); CHLORIDE 102 mmol/L (98-107); CREATINE KINASE 59 U/L (30-135); GLUCOSE 101 mg/dL (75-110); POTASSIUM 4.4 mmol/L (3.6-5.0); TOTAL PROTEIN 6.8 g/dL (6.3-8.2)
[2019-05-16 18:58] LABS: CALCIUM 9.4 mg/dL (8.4-10.2)
[2019-05-16 19:09] LABS: CREATINE KINASE MB 1.18 ng/mL (<4.55)
[2019-05-16 19:12] LABS: FREE T4 (FREE THYROXINE) 0.89 ng/dL (0.78-2.19)
[2019-05-16 19:14] LABS: TROPONIN I < 0.012 ng/mL
[2019-05-16 19:26] LABS: THYROID STIMULATING HORMONE 0.49 uIU/mL (0.47-4.68)
--- NOTE | 2019-05-16 21:01 | EKG REPORT ---
SEVERITY:- OTHERWISE NORMAL ECG - SINUS RHYTHM ATRIAL PREMATURE COMPLEX : Confirmed by: Chloe Machado 16-May-2019 21:00:15
[2019-05-16] MEDS: BUTALB/ACETAMINOPHEN/CAFFEINE 1 TAB EACH PO PRN (21:08)
[2019-05-16 21:17] LABS: APPEARANCE,URINE CLEAR; BILIRUBIN,URINE NEGATIVE (NEGATIVE); COLOR,URINE STRAW; GLUCOSE, URINE 50 mg/dL (NEGATIVE); KETONES,URINE NEGATIVE (NEGATIVE); LEUKOCYTE ESTERASE,URINE TRACE (NEGATIVE); NITRITE,URINE NEGATIVE (NEGATIVE); PROTEIN,URINE NEGATIVE (NEGATIVE); URINE SPECIFIC GRAVITY 1.012; UROBILINOGEN,URINE NEGATIVE mg/dL (<2.0)
--- NOTE | 2019-05-16 21:30 | RADIOLOGY REPORT (SQ) ---
EXAM DESCRIPTION: RadLex: CT HEAD WITHOUT IV CONTRAST CLINICAL HISTORY: 63 years Female; ataxia TECHNIQUE: Noncontrast CT head. All CT scans at this facility use dose modulation, iterative reconstruction, and/or weight based dosing when appropriate to reduce radiation dose to as low as reasonably achievable. COMPARISON: MRI 05/29/2018, CT 05/26/2018 FINDINGS: Lott matter, white matter, ventricles, and cisterns are within normal limits. No acute hemorrhage or mass effect. Visualized portions of paranasal sinuses and mastoids are clear. Visualized portions of the calvarium are within normal limits. IMPRESSION: 1. No acute intracranial findings.
--- NOTE | 2019-05-16 21:31 | RADIOLOGY REPORT (SQ) ---
EXAM DESCRIPTION: XR CHEST 2 VIEWS COMPLETED DATE/TME: 05/16/2019 00:00 CLINICAL HISTORY: 63 years, Female, acute ataxia COMPARISON: X-ray chest 07/30/2018 NUMBER OF VIEWS: TECHNIQUE: LIMITATIONS: None. FINDINGS: No evidence of tracheal pleural effusion. The heart is normal in size. The mediastinum is unremarkable. Pulmonary vascularity appears normal. There is a cardiac loop recorder. There is orthopedic fixation hardware within the proximal left humerus. IMPRESSION: No acute finding. copyright 2010 [employer]- All Rights Reserved
[2019-05-16] MEDS: GABAPENTIN 100 MG CAPSULE PO SCH (21:59)
[2019-05-16] MEDS ORDERED: ATORVASTATIN CALCIUM 80 MG TABLET PO SCH (22:00)
[2019-05-17 03:37] LABS: CREATINE KINASE MB 0.99 ng/mL (<4.55)
[2019-05-17 03:45] LABS: TROPONIN I < 0.012 ng/mL
[2019-05-17] MEDS ORDERED: ENOXAPARIN SODIUM INJ 100 MG/1 ML DISP.SYRIN SUBCUT SCH (06:00)
[2019-05-17] MEDS: GABAPENTIN 100 MG CAPSULE PO SCH ×2 (06:04→13:53)
[2019-05-17] MEDS ORDERED: DULOXETINE HCL 30 MG CAPSULE.DR PO SCH (10:00)
[2019-05-17] MEDS ORDERED: ASPIRIN 81 MG TABLET, ENT COATED PO SCH (10:00)
[2019-05-17 11:28] LABS: CREATINE KINASE MB 0.99 ng/mL (<4.55)
[2019-05-17 11:32] LABS: TROPONIN I < 0.012 ng/mL
[2019-05-17] MEDS: BUTALB/ACETAMINOPHEN/CAFFEINE 1 TAB EACH PO PRN (12:06)
--- NOTE | 2019-05-17 13:27 | PDOC H&P ---
History of Present Illness Admission Date/PCP: 05/16/19 17:19 TANNER BOSCH MD History of Present Illness: BRAD METZ is a 63 year old female, she came to the office for eval uation of abnormal gait, headache, dizziness, she has history of cerebral infarction, the etiology of her symptoms was not apparent in the office, I felt patient needed to be admitted into the hospital for further evaluation of her symptoms. CT head without contrast was obtained, it demonstrated that the english matter, white matter, ventricles were within normal limits there was no acute hemorrhage or mass-effect the paranasal sinuses and mastoids were normal. The electrolytes were normal the hemogram was normal. Patient was admitted for observation Past Medical History Neurological Medical History: Reports: Ischemic CVA GI Medical History: Reports: Gastroesophageal Reflux Disease, Hiatal Hernia Musculoskeltal Medical History: Reports: Arthritis Psychiatric Medical History: Reports: Depression Hematology: Reports: Anemia - HAS RECEIVED IRON INFUSIONS Past Surgical History Past Surgical History: Reports: Section - x2, Gastric Bypass Surgery, Tonsillectomy - and Addenoids Social History Smoking Status: Never Smoker Electronic Cigarette use?: No Frequency of Alcohol Use: None Hx Recreational Drug Use: No Drugs: None Hx Prescription Drug Abuse: No Family History Family History: Reviewed & Not Pertinent Parental Family History Reviewed: Yes Children Family History Reviewed: Yes Sibling(s) Family History Reviewed.: Yes Medication/Allergy Home Medications: RX: Aspirin [Ecotrin 81 mg EC Tablet] 81 mg PO DAILY 05/16/19 RX: Atorvastatin Calcium [Lipitor 80 mg Tablet] 80 mg PO QHS 05/16/19 RX: Duloxetine HCl [Cymbalta] 60 mg PO DAILY 05/16/19 RX: Gabapentin [Neurontin 100 mg Capsule] 100 mg PO TID 05/16/19 RX: Butalb/Acetaminophen/Caffeine [Fioricet (50-325-40 mg) Tablet] 1 tab PO Q4HP PRN #60 each 05/17/19 Allergies/Adverse Reactions: adhesive tape Allergy (Verified 05/29/18 14:59) No Known Drug Allergies Allergy (Verified 05/29/18 14:59) Review of Systems Constitutional: PRESENT: headache(s) Eyes: ABSENT: visual disturbances Ears: ABSENT: hearing changes Cardiovascular: ABSENT: chest pain, dyspnea on exertion, edema, orthropnea, palpitations Respiratory: ABSENT: cough, hemoptysis Gastrointestinal: ABSENT: abdominal pain, constipation, diarrhea, hematemesis, hematochezia, nausea, vomiting Genitourinary: ABSENT: dysuria, hematuria Musculoskeletal: ABSENT: joint swelling Integumentary: ABSENT: rash, wounds Neurological: PRESENT: dizziness Psychiatric: ABSENT: anxiety, depression, homidical ideation, suicidal ideation Endocrine: ABSENT: cold intolerance, heat intolerance, menstrual abnormalities, polydipsia, polyuria Hematologic/Lymphatic: ABSENT: easy bleeding, easy bruising, lymphadenopathy Physical Exam Vital Signs: Temp Pulse Resp BP Pulse Ox 98.0 F 72 16 140/63 H 100 05/17/19 08:57 05/17/19 08:57 05/17/19 08:57 05/17/19 08:57 05/17/19 08:57 Intake & Output 05/16/19 05/17/19 05/18/19 06:59 06:59 06:59 Intake Total 840 Balance 840 Weight 95.6 kg General appearance: PRESENT: no acute distress, well-developed, well-nourished Head exam: PRESENT: atraumatic, normocephalic Eye exam: PRESENT: conjunctiva pink, EOMI, PERRLA Ear exam: PRESENT: normal external ear exam Mouth exam: PRESENT: moist, tongue midline Neck exam: PRESENT: full ROM Respiratory exam: PRESENT: clear to auscultation homero Cardiovascular exam: PRESENT: RRR, +S1, +S2 Pulses: PRESENT: normal dorsalis pedis pul, +2 pedal pulses bilateral Vascular exam: PRESENT: normal capillary refill GI/Abdominal exam: PRESENT: normal bowel sounds, soft Rectal exam: PRESENT: deferred Neurological exam: PRESENT: alert, awake, oriented to person, oriented to place, oriented to time, oriented to situation, CN II-XII grossly intact Psychiatric exam: PRESENT: appropriate affect, normal mood Skin exam: PRESENT: dry, intact, warm Results Laboratory Results: 05/16/19 18:13 05/16/19 18:13 05/16/19 05/16/19 05/16/19 18:13 18:13 18:13 WBC 7.6 RBC 4.32 Hgb 12.5 Hct 37.8 MCV 88 MCH 28.9 MCHC 33.0 RDW 14.0 Plt Count 334 Sodium 138.0 Potassium 4.4 Chloride 102 Carbon Dioxide 30 Anion Gap 6 BUN 16 Creatinine 0.68 Est GFR ( Amer) > 60 Glucose 101 Calcium 9.4 Total Bilirubin 0.3 AST 51 H Alkaline Phosphatase 119 Total Protein 6.8 Albumin 3.8 TSH 0.49 Free T4 0.89 Urine Color Urine Appearance Urine pH Ur Specific [place] Urine Protein Urine Glucose (UA) Urine Ketones Urine Blood Urine Nitrite Ur Leukocyte Esterase Urine WBC (Auto) 05/16/19 20:45 WBC RBC Hgb Hct MCV MCH MCHC RDW Plt Count Sodium Potassium Chloride Carbon Dioxide Anion Gap BUN Creatinine Est GFR ( Amer) Glucose Calcium Total Bilirubin AST Alkaline Phosphatase Total Protein Albumin TSH Free T4 Urine Color STRAW Urine Appearance CLEAR Urine pH 5.0 Ur Specific [place] 1.012 Urine Protein NEGATIVE Urine Glucose (UA) 50 H Urine Ketones NEGATIVE Urine Blood NEGATIVE Urine Nitrite NEGATIVE Ur Leukocyte Esterase TRACE H Urine WBC (Auto) 2 05/16/19 05/16/19 05/17/19 18:13 18:13 02:31 Creatine Kinase 59 36 CK-MB (CK-2) 1.18 Troponin I < 0.012 05/17/19 05/17/19 05/17/19 02:31 10:46 10:46 Creatine Kinase 35 CK-MB (CK-2) 0.99 0.99 Troponin I < 0.012 < 0.012 Impressions: Chest X-Ray 05/16/19 00:00 IMPRESSION: No acute finding. copyright 2011 [employer]- All Rights Reserved Head CT 05/16/19 00:00 IMPRESSION: 1. No acute intracranial findings. Assessment & Plan - Diagnosis (2) Headache Qualifiers: Headache type: tension-type Headache chronicity pattern: unspecified pattern Intractability: not intractable Qualified Code(s): G44.209 - Tension-type headache, unspecified, not intractable Is this a current diagnosis for this admission?: Yes
--- NOTE | 2019-05-17 13:32 | PDOC DISCHARGE SUMMARY ---
Impression - Admit/DC Date/PCP Admission Date/Primary Care Provider: 05/16/19 17:19 TANNER BOSCH MD Discharge Date: 05/17/19 - Discharge Diagnosis (1) Ataxia Is this a current diagnosis for this admission?: Yes (2) Headache Is this a current diagnosis for this admission?: Yes - Additional Information Referrals: TANNER BOSCH MD [Primary Care Provider] - Prescriptions: RX: Butalb/Acetaminophen/Caffeine [Fioricet (50-325-40 mg) Tablet] 1 tab PO Q4HP PRN #60 each PRN Reason: Home Medications: RX: Aspirin [Ecotrin 81 mg EC Tablet] 81 mg PO DAILY 05/16/19 RX: Atorvastatin Calcium [Lipitor 80 mg Tablet] 80 mg PO QHS 05/16/19 RX: Duloxetine HCl [Cymbalta] 60 mg PO DAILY 05/16/19 RX: Gabapentin [Neurontin 100 mg Capsule] 100 mg PO TID 05/16/19 RX: Butalb/Acetaminophen/Caffeine [Fioricet (50-325-40 mg) Tablet] 1 tab PO Q4HP PRN #60 each 05/17/19 History of Present Illiness History of Present Illness: BRAD METZ is a 63 year old female, she came to the office for evaluation of abnormal gait, headache, dizziness, she has history of cerebral infarction, the etiology of her symptoms was not apparent in the office, I felt patient needed to be admitted into the hospital for further evaluation of her symptoms. CT head without contrast was obtained, it demonstrated that the english matter, white matter, ventricles were within normal limits there was no acute hemorrhage or mass-effect the paranasal sinuses and mastoids were normal. The electrolytes were normal the hemogram was normal. Patient was admitted for observation Hospital Course Hospital Course: Patient was admitted for observation, the headache was treated with Fioricet, CT head was negative, she was admitted when she presented with symptoms, the etiology of the symptoms was not apparent because she has a history of CVA it was felt that she needed to be admitted for observation. The evaluation done in the hospital was all negative, she was treated empirically with Fioricet for headache, she will follow-up patient with ophthalmology for further evaluation Physical Exam Vital Signs: Temp Pulse Resp BP Pulse Ox 98.0 F 72 16 140/63 H 100 01/11/20 08:57 05/17/19 08:57 05/17/19 08:57 05/17/19 08:57 05/17/19 08:57 Intake & Output 05/16/19 05/17/19 05/18/19 06:59 06:59 06:59 Intake Total 840 Balance 840 Weight 95.6 kg General appearance: PRESENT: no acute distress Eye exam: PRESENT: PERRLA Respiratory exam: PRESENT: clear to auscultation homero Cardiovascular exam: PRESENT: +S1, +S2 GI/Abdominal exam: PRESENT: soft Neurological exam: PRESENT: alert, CN II-XII grossly intact Results Laboratory Results: WBC 7.6 10^3/uL (4.0-10.5) 05/16/19 18:13 RBC 4.32 10^6/uL (3.72-5.28) 05/16/19 18:13 Hgb 12.5 g/dL (12.0-15.5) 05/16/19 18:13 Hct 37.8 % (36.0-47.0) 05/16/19 18:13 MCV 88 fl (80-97) 05/16/19 18:13 MCH 28.9 pg (27.0-33.4) 05/16/19 18:13 MCHC 33.0 g/dL (32.0-36.0) 05/16/19 18:13 RDW 14.0 % (11.5-14.0) 05/16/19 18:13 Plt Count 334 10^3/uL (150-450) 05/16/19 18:13 Sodium 138.0 mmol/L (137-145) 05/16/19 18:13 Potassium 4.4 mmol/L (3.6-5.0) 05/16/19 18:13 Chloride 102 mmol/L (98-107) 05/16/19 18:13 Carbon Dioxide 30 mmol/L (22-30) 05/16/19 18:13 Anion Gap 6 (5-19) 05/16/19 18:13 BUN 16 mg/dL (7-20) 05/16/19 18:13 Creatinine 0.68 mg/dL (0.52-1.25) 05/16/19 18:13 Est GFR ( Amer) > 60 (>60) 05/16/19 18:13 Est GFR (MDRD) Non-Af > 60 (>60) 05/16/19 18:13 Glucose 101 mg/dL (75-110) 05/16/19 18:13 Calcium 9.4 mg/dL (8.4-10.2) 05/16/19 18:13 Total Bilirubin 0.3 mg/dL (0.2-1.3) 05/16/19 18:13 Direct Bilirubin 0.2 mg/dL (0.0-0.4) 05/16/19 18:13 Neonat Total Bilirubin Not Reportable 05/16/19 18:13 Neonat Direct Bilirubin Not Reportable 05/16/19 18:13 Neonat Indirect Bili Not Reportable 05/16/19 18:13 AST 51 U/L (14-36) H 05/16/19 18:13 ALT 88 U/L (<35) 05/16/19 18:13 Alkaline Phosphatase 119 U/L (38-126) 05/16/19 18:13 Creatine Kinase 35 U/L (30-135) 05/17/19 10:46 CK-MB (CK-2) 0.99 ng/mL (<4.55) 05/17/19 10:46 Troponin I < 0.012 ng/mL 05/17/19 10:46 Total Protein 6.8 g/dL (6.3-8.2) 05/16/19 18:13 Albumin 3.8 g/dL (3.5-5.0) 05/16/19 18:13 TSH 0.49 uIU/mL (0.47-4.68) 05/16/19 18:13 Free T4 0.89 ng/dL (0.78-2.19) 05/16/19 18:13 Urine Color STRAW 05/16/19 20:45 Urine Appearance CLEAR 05/16/19 20:45 Urine pH 5.0 (5.0-9.0) 05/16/19 20:45 Ur Specific [place] 1.012 05/16/19 20:45 Urine Protein NEGATIVE mg/dL (NEGATIVE) 05/16/19 20:45 Urine Glucose (UA) 50 mg/dL (NEGATIVE) H 05/16/19 20:45 Urine Ketones NEGATIVE mg/dL (NEGATIVE) 05/16/19 20:45 Urine Blood NEGATIVE (NEGATIVE) 05/16/19 20:45 Urine Nitrite NEGATIVE (NEGATIVE) 05/16/19 20:45 Urine Bilirubin NEGATIVE (NEGATIVE) 05/16/19 20:45 Urine Urobilinogen NEGATIVE mg/dL (<2.0) 05/16/19 20:45 Ur Leukocyte Esterase TRACE (NEGATIVE) H 05/16/19 20:45 Urine WBC (Auto) 2 /HPF 05/16/19 20:45 Squamous Epi Cells Auto <1 /HPF 05/16/19 20:45 Urine Mucus (Auto) RARE /LPF 05/16/19 20:45 Urine Ascorbic Acid NEGATIVE (NEGATIVE) 05/16/19 20:45 05/16/19 05/17/19 05/17/19 18:13 02:31 10:46 CK-MB (CK-2) 1.18 0.99 0.99 Troponin I < 0.012 < 0.012 < 0.012 Impressions: Chest X-Ray 05/16/19 00:00 IMPRESSION: No acute finding. copyright 2011 [employer]- All Rights Reserved Head CT 05/16/19 00:00 IMPRESSION: 1. No acute intracranial findings. Stroke Is this a Stroke Patient?: No Acute Heart Failure - Is this a Heart Failure Patient?: No
[2019-05-17 13:36] VITALS: BP 144/75
== END 2019-05-17 17:08 | disposition home or self-care (01) ==
LOC: 3N 16:24 → INTOOBSV 17:19 → OBSVTOIN 17:19
PROVIDERS: ADMIT Internal Medicine; ATTEND Internal Medicine
DX: R27.8 Other lack of coordination (principal); G44.209 Tension-type headache, unspecified, not intractable; F32.9 Major depressive disorder, single episode, unspecified; M19.90 Unspecified osteoarthritis, unspecified site; Z79.82 Long term (current) use of aspirin; Z79.899 Other long term (current) drug therapy; Z86.73 Personal history of transient ischemic attack (TIA), and cerebral infarction without residual deficits; Z23 Encounter for immunization; Z98.84 Bariatric surgery status
CPT/HCPCS: 36415 ×2; 84439; 82553 ×2; 82550 ×2; 84443; 85027; 80076; 80048; 81001; 84484 ×2; 71046; 70450; 90686; 93005; 93010; 97163; G0378 ×2; G0379; A9270 ×7; J1650; J3490

== ENCOUNTER → 2019-06-18 | Outpatient (CLI) | payer MEDICARE, OTHER ==
--- NOTE | 2019-06-18 12:44 | WOMENS IMAGING REPORT ---
EXAM DESCRIPTION: BONE DENSITY HIP/SPINE COMPLETED DATE/TIME: 06/18/2019 8:59 am REASON FOR STUDY: M81.0 BONE DENSITY M81.0 AGE-RELATED OSTEOPOROSIS W/O CURRENT PATHOLOGICAL FRAC COMPARISON: None. TECHNIQUE: Dual-Energy X-ray Absorptiometry (DEXA) of the AP Spine and Hip. LIMITATIONS: None. FINDINGS: LUMBAR SPINE: The bone mineral density (BMD) measured from L1-L4 in the AP projection correlates with a T-score of 0.2, which is normal as defined by the World Health Organization. BMD Change vs Baseline: N/A HIP: The bone mineral density (BMD) measured in the hip correlates with a T-score of -1.8 in the femoral neck, which is osteopenia as defined by the World Health Organization. BMD Change vs Baseline: N/A 10 year Fracture Risk Assessment: Major Osteoporotic Fracture: Not available. Hip Fracture: Not available. IMPRESSION: 1. LUMBAR SPINE WHO CLASSIFICATION: Normal 2. HIP WHO CLASSIFICATION: Osteopenia OVERALL ASSESSMENT: WHO CLASSIFICATION: Osteopenia COMMENT: The World Health Organization defines low BMD as follows: T-score: Normal: Greater than -1.0 Osteopenia: Between -1.0 and -2.5 Osteoporosis: Less than -2.5 without fractures Established osteoporosis: Less than -2.5 with fractures In general, you may wish to consider: Diagnosis Treatment Follow-up DEXA Normal BMD Prevention 2-3 years Osteopenia Prevention/Therapy 1-2 years Osteoporosis Therapy Yearly TECHNICAL DOCUMENTATION: JOB ID: [id number] 2011 [employer]- All Rights Reserved Reading location - IP/workstation name: [email or web address]
== END ==
LOC: WI 08:00
PROVIDERS: ATTEND Physician Assistant Medical
DX: M81.0 Age-related osteoporosis without current pathological fracture (principal)
CPT/HCPCS: 77080

== ENCOUNTER 2019-07-18 02:58 | Emergency (ER) | payer MEDICARE, OTHER ==
[2019-07-18] MEDS ORDERED: DIPH/PERTUSS(ACELL)/TETANUS VAC/PF 0.5 ML SYR (>=10YO) IM ONE (07:29)
[2019-07-18] MEDS ORDERED: AMOXICILLIN TR/POT CLAVULANATE 875-125 MG TAB PO ONE (07:30)
[2019-07-18] MEDS ORDERED: ONDANSETRON HCL INJ/PF 4 MG/2 ML SDV IV ONE (07:30)
--- NOTE | 2019-07-18 07:34 | ER Document Report ---
ED General - General Chief Complaint: Animal Bite Stated Complaint: FALL,LEFT KNEE AND ARM PAIN,RIGHT LEG CAT BITE Time Seen by Provider: 07/18/19 07:22 Primary Care Provider: VAUGHN WALLIS PA-C [ALLIED HEALTH PROFESSIONAL] - Follow up as needed TRAVEL OUTSIDE OF THE [place] IN LAST 30 DAYS: No - HPI Notes: Chief complaint: Cat bite and fall Patient is a 63-year-old female who has significant osteoarthritis and chronic pain and normally ambulates with a cane who is seen now for injuries that occurred when she tripped over her cat. The cat immediately bit her in the right calf area. She fell to the floor and says that she has had pain in her left knee her left shoulder and her neck since the fall. This occurred several hours prior to arrival here. There was no head injury no loss of consciousness. The patient is not taking any type of anticoagulant. Last tetanus booster is unknown. She reports allergy to adhesive tape with no other known allergies. This was a provoked attack by the cat. The cat has not been ill. The animals immunizations are up-to-date. - Related Data Allergies/Adverse Reactions: adhesive tape Allergy (Verified 07/18/19 03:12) No Known Drug Allergies Allergy (Verified 07/18/19 03:12) Past Medical History - General Information source: Patient - Social History Smoking Status: Never Smoker Family History: Reviewed & Not Pertinent Patient has suicidal ideation: No Patient has homicidal ideation: No Neurological Medical History: Denies: Hx Cerebrovascular Accident Renal/ Medical History: Denies: Hx Peritoneal Dialysis GI Medical History: Reports: Hx Gastroesophageal Reflux Disease, Hx Hiatal Hernia. Denies: Hx Ulcer Musculoskeletal Medical History: Reports Hx Arthritis Psychiatric Medical History: Reports: Hx Depression Past Surgical History: Reports: Hx Abdominal Surgery - GBP, Hx Section - x2, Hx Gastric Bypass Surgery, Hx Tonsillectomy - and Addenoids. Denies: Hx Open Heart Surgery - Immunizations Immunizations up to date: No Hx Diphtheria, Pertussis, Tetanus Vaccination: Yes Review of Systems - Review of Systems Notes: Constitutional: Negative for fever. HENT: Negative for sore throat. Eyes: Negative for visual changes. Cardiovascular: Negative for chest pain. Respiratory: Negative for shortness of breath. Gastrointestinal: Negative for abdominal pain, vomiting or diarrhea. Genitourinary: Negative for dysuria. Musculoskeletal: As per HPI. Skin: Negative for rash. Neurological: Negative for headaches, weakness or numbness. 10 point ROS negative except as marked above and in HPI. Physical Exam - Vital signs Vitals: Temp Pulse Resp BP Pulse Ox 98.5 F 77 20 143/64 H 98 07/18/19 03:05 07/18/19 03:05 07/18/19 03:05 07/18/19 03:05 07/18/19 03:05 - Notes Notes: GENERAL: Female patient approximately stated age who appears mildly uncomfortable. SKIN: Good turgor no rashes. Superficial abrasions of left elbow and left knee. Patient has bite whittaker of the posterior mid calf area on the right with some mild redness surrounding this. HEAD: Normocephalic atraumatic. EYES: PERRLA. EOMI. Conjunctivae and sclerae clear. EARS: CANALS AND TMS CLEAR. NOSE: CLEAR. MOUTH: Moist mucosa. Good dentition. No stridor or edema. No drooling. NECK: Supple. Mild bony tenderness mid C-spine area posteriorly without crepitus or step-off. No masses or thyromegaly. No adenopathy. Carotids 2+ without bruits. No JVD. BACK: Symmetrical without tenderness. CHEST: Respirations unlabored. Breath sounds clear and symmetrical. HEART: Regular rhythm. No murmur gallop or rub. ABDOMEN: Soft nontender without masses, organomegaly or rebound. Bowel sounds normally active. No bruits. GENITALIA: Deferred. EXTREMITIES: Mild tenderness over left shoulder and left knee with no obvious step-off or crepitus. Superficial abrasion is noted over the olecranon area of the left elbow and also anterior surface of the left knee. Bite whittaker over the right calf as noted above. No edema. No calf tenderness. Cap refill less than 1.5 seconds. Dorsalis pedis and posterior tibial pulses 3+ and symmetrical. NEUROLOGICAL: GCS 15. Alert and oriented x3. Ambulatory with a cane as per baseline. Fluent speech. Cranial nerves II through XII intact. Sensorimotor and cerebellar normal. Normal tone. PSYCHIATRIC: Appropriate affect. Course - Re-evaluation Re-evalutation: 07/18/19 09:56 Bite wound was cleaned and dressed with Neosporin. Tetanus booster administered. Initial dose of oral Augmentin administered. Patient had plain films of her neck left shoulder and left knee all of which showed arthritic changes with no acute fracture per radiology. She appears stable for outpatient follow-up with primary care physician. - Vital Signs Vital signs: Temp Pulse Resp BP Pulse Ox 97.8 F 69 18 111/55 L 100 07/18/19 09:42 07/18/19 09:42 07/18/19 09:42 07/18/19 09:42 07/18/19 09:42 - Diagnostic Test Radiology reviewed: Reports reviewed - Plain films of C-spine left shoulder and left knee showed no acute fractures per radiologist Discharge - Discharge Clinical Impression: Cat bite right calf, Multiple contusions Fall Qualifiers: Encounter type: initial encounter Qualified Code(s): W19.XXXA - Unspecified fall, initial encounter Condition: Stable Disposition: HOME, SELF-CARE Additional Instructions: Apply warm compresses to area of animal bite. Elevate the extremity. Return here for any the following: High fever/shaking chills Vomiting Pus draining from the wound Redness and swelling moving up the leg Overall worsening Uncontrolled pain See your primary care doctor next 3 to 5 days for recheck Prescriptions: Amox Tr/Potassium Clavulanate [Augmentin 250-62.5 mg/5 ml Susp] 10 ml PO TID 10 Days #1 bottle Referrals: VAUGHN WALLIS PA-C [ALLIED HEALTH PROFESSIONAL] - Follow up as needed
[2019-07-18] MEDS ORDERED: ONDANSETRON 4 MG TAB.RAPDIS PO ONE (08:28)
--- NOTE | 2019-07-18 08:41 | RADIOLOGY REPORT (SQ) ---
EXAM DESCRIPTION: SHOULDER LEFT 2 OR MORE VIEWS COMPLETED DATE/TIME: 07/18/2019 8:09 am REASON FOR STUDY: injury COMPARISON: None. NUMBER OF VIEWS: Three views. TECHNIQUE: Internal rotation, external rotation, and Y view images acquired of the left shoulder. LIMITATIONS: None. FINDINGS: MINERALIZATION: Normal. BONES: Post surgical changes with hardware proximal left humerus. No radiographic evidence of loose leta or infection. No acute fracture. JOINTS: No dislocation. VISUALIZED LUNGS AND RIBS: No pneumothorax. No rib fracture. SOFT TISSUES: No radiopaque foreign body. OTHER: Partially visualize cardiac loop recorder device. IMPRESSION: 1. Post surgical changes with hardware proximal left humerus. 2. No acute osseous findings. TECHNICAL DOCUMENTATION: JOB ID: [id number] 2010 [employer]- All Rights Reserved Reading location - IP/workstation name: [email or web address]
--- NOTE | 2019-07-18 08:42 | RADIOLOGY REPORT (SQ) ---
EXAM DESCRIPTION: KNEE LEFT 3 VIEWS COMPLETED DATE/TIME: 07/18/2019 8:09 am REASON FOR STUDY: injury COMPARISON: None. NUMBER OF VIEWS: Three views. TECHNIQUE: AP, lateral, and sunrise patella radiographic images acquired of the left knee. LIMITATIONS: None. FINDINGS: MINERALIZATION: Mild osteopenia. BONES: No acute fracture or dislocation. No worrisome bone lesions. JOINT: No effusion. SOFT TISSUES: No soft tissue swelling. No radio-opaque foreign body. OTHER: No other significant finding. IMPRESSION: 1. No acute osseous findings. TECHNICAL DOCUMENTATION: JOB ID: [id number] 2010 [employer]- All Rights Reserved Reading location - IP/workstation name: [email or web address]
--- NOTE | 2019-07-18 08:45 | RADIOLOGY REPORT (SQ) ---
EXAM DESCRIPTION: CERV SP 4 OR 5 VIEWS COMPLETED DATE/TIME: 07/18/2019 8:09 am REASON FOR STUDY: injury COMPARISON: None. NUMBER OF VIEWS: Five views. TECHNIQUE: AP, lateral, obliques and odontoid radiographic images acquired of the cervical spine. LIMITATIONS: None. FINDINGS: MINERALIZATION: Normal. ALIGNMENT: Anatomic. VERTEBRAE: The odontoid is partially obscured by overlying osseous structures. Vertebral bodies of normal height. DISCS: Moderate severe disc space narrowing C6-C7 and small anterior osteophytes. FORAMINA: Mild multilevel foraminal narrowing suggested mid-lower cervical spine. LATERAL AND POSTERIOR ELEMENTS: Facets, lateral masses and spinous processes without significant find ings. HARDWARE: None in the spine. SOFT TISSUES: Small calcified lymph node lower left neck. Lung apices clear. OTHER: No other significant finding. IMPRESSION: 1. The examination is somewhat limited as above. No acute osseous findings on the obta ined study. 2. Degenerative moderate severe disc disease C6-C7. TECHNICAL DOCUMENTATION: JOB ID: [id number] 2010 [employer]- All Rights Reserved Reading location - IP/workstation name: [email or web address]
[2019-07-18 10:32] VITALS: BP 112/43
== END 2019-07-18 10:32 | disposition home or self-care (01) ==
LOC: ER 02:58
DX: S50.312A Abrasion of left elbow, initial encounter (principal); S80.212A Abrasion, left knee, initial encounter; M25.562 Pain in left knee; M79.602 Pain in left arm; M79.604 Pain in right leg; M19.90 Unspecified osteoarthritis, unspecified site; G89.29 Other chronic pain; W55.01XA Bitten by cat, initial encounter
CPT/HCPCS: 99283; 90471; 72050; 73562; 73030; 90715; A9270; J3490; S0119

== ENCOUNTER 2019-12-03 12:45 | Outpatient (CLI) | payer MEDICARE, OTHER ==
[2019-12-03 12:56] VITALS: BP 132/88
[2019-12-03] MEDS ORDERED: NORMAL SALINE 250 ML IV PRN (13:11)
[2019-12-03] MEDS ORDERED: FERUMOXYTOL (NON-ESRD) 510 MG/NS 100 ML IV ONE ×2 (13:30)
== END 2019-12-03 14:00 | disposition home or self-care (01) ==
LOC: RDC 12:45 → 5TH 12:48 → RDC 14:00
PROVIDERS: ATTEND Internal Medicine
DX: D50.8 Other iron deficiency anemias (principal); K90.9 Intestinal malabsorption, unspecified
CPT/HCPCS: 96365; Q0138; J7050

== ENCOUNTER 2019-12-10 07:42 | Outpatient (CLI) | payer MEDICARE, OTHER ==
[2019-12-10 07:54] VITALS: BP 123/57
== END 2019-12-10 08:36 | disposition home or self-care (01) ==
LOC: II 07:42 → 5TH 07:45 → II 08:36
PROVIDERS: ATTEND Internal Medicine
DX: D50.8 Other iron deficiency anemias (principal); K90.9 Intestinal malabsorption, unspecified
CPT/HCPCS: 96365; Q0138; J7050

== ENCOUNTER → 2019-12-26 | Outpatient (CLI) | payer MEDICARE, OTHER | LOC: WI 08:37 | PROVIDERS: ATTEND Internal Medicine | DX: Z12.31 Encounter for screening mammogram for malignant neoplasm of breast (principal) | CPT/HCPCS: 77063; 77067 ==